=== PATIENT | male | born 1950 | race Caucasian/White ===

== ENCOUNTER 2017-12-06 10:06 | Inpatient (IN) | payer OTHER, MEDICARE ==
[2017-12-06] MEDS ORDERED: ATROPINE SULFATE 1 MG/10 ML SYR IVP ONE (10:15)
--- NOTE | 2017-12-06 10:29 | EDPHY ---
H & P Time Seen by Provider: 12/06/17 10:09 HPI/ROS: CHIEF COMPLAINT: Crushing chest pain HISTORY OF PRESENT ILLNESS: The patient is brought in emergently by paramedics with crushing chest pain which began after he was participating in a spin class today. The patient was noted to be intermittently bradycardic and hypotensive in route. He received aspirin only. The patient has a history of coronary artery disease status post stenting to the right distal coronary artery in September of 2014. He had angiographically normal left coronary system at that point time. The patient reports he has had mild upper respiratory illness. He reports a severe bandlike pain currently. REVIEW OF SYSTEMS: A comprehensive 10 point review of systems is otherwise negative aside from elements mentioned in the history of present illness. Source: Patient - Medical/Surgical History Hx Asthma: No Hx Chronic Respiratory Disease: No Hx Diabetes: No Hx Cardiac Disease: No Hx Renal Disease: Yes Hx Cirrhosis: No Hx Alcoholism: No Hx HIV/AIDS: No Hx Splenectomy or Spleen Trauma: No Other PMH: KIDNEY AND PROSTATE CA - Social History Smoking Status: Never smoked - Physical Exam Exam: General Appearance: Ill-appearing, diaphoretic Eyes: Pupils equal and round no pallor or injection ENT, Mouth: Mucous membranes moist Respiratory: There are no retractions, lungs are clear to auscultation Cardiovascular: Regular rate and rhythm Gastrointestinal: Abdomen is soft and nontender, no masses, bowel sounds normal Neurological: A&O, normal motor function, normal sensory exam, normal cranial nerves Skin: Warm and dry, no rashes Musculoskeletal: Neck is supple nontender Extremities: symmetrical, full range of motion, 2+ radial, dorsalis pedis and posterior tibial pulses noted bilaterally Constitutional: Initial Vital Signs Heart Rate 85 12/06/17 10:10 Respiratory Rate 16 12/06/17 10:10 Blood Pressure 76/50 L 12/06/17 10:10 O2 Sat (%) 87 L 12/06/17 10:10 O2 Delivery Mode Room Air O2 (L/minute) 15 Allergies/Adverse Reactions: No Known Allergies Allergy (Unverified 10/21/14 10:25) Home Medications: Medication Instructions Recorded Cholecalciferol Vit D3 [Vitamin D3 1,000 units PO DAILY 10/21/14 (OTC)] Ibuprofen [Advil] 200 mg PO DAILY PRN 10/21/14 Multivitamins [Tab-A-Finn] 1 each PO DAILY 10/21/14 Medical Decision Making - Diagnostics EKG Interpretation: EKG: Complete interpretation has been separately recorded in the [facility] archive. Summary impression: ST segment depression noted in the inferior leads with mild ST segment elevation in the precordial leads Imaging Results: Imaging Impressions Chest X-Ray 12/06/17 10:13 Impression: 1. Prominence of pulmonary vasculature as well as superior mediastinum. Could potentially just be related to supine position. Consider follow-up upright and lateral views of the chest when the patient is able previous CT of the chest did demonstrate dilated ascending aorta. From single supine image, dissection cannot be excluded at this point. Chest x-ray AP: Images reviewed by myself, wide mediastinum present ED Course/Re-evaluation: The patient arrived to the emergency department hypotensive, tachycardic, diaphoretic. I reviewed the pre-hospital EKG in appreciated ST segment elevation with subtle ST segment elevation noted in the precordial leads. The patient was made a cardiac alert immediately upon arrival. Dr. Yanes from Cardiology emergently presented to the emergency department. The patient did undergo a stat echocardiogram which demonstrates an aortic dissection. I spoke with the cardiothoracic surgery service at 10:20 a.m.. The operating room has been notified of a OR red alert. Cardiothoracic surgery is evaluating the patient in the emergency department at 10:30 a.m. of making arrangements for emergent transfer to the operating room. 10:41 a.m.: Patient is being transferred emergently to the operating room. Critical Care Time: Critical care time exclusive of procedures and exclusive of the PA's time was 35 minutes, performed by myself, Blas Benitez MD. - Data Points Laboratory Results: Laboratory Results 12/06/17 10:13 12/06/17 10:13 12/06/17 12/06/17 12/06/17 10:13 10:13 10:13 WBC RBC Hgb Hct MCV MCH MCHC RDW Plt Count MPV Neut % (Auto) Lymph % (Auto) [place] % (Auto) Eos % (Auto) Baso % (Auto) Nucleat RBC Rel Count Absolute Neuts (auto) Absolute Lymphs (auto) Absolute Monos (auto) Absolute Eos (auto) Absolute Basos (auto) Absolute Nucleated RBC Immature Gran % Immature Gran # PT 16.8 SEC H SEC (12.0-15.0) INR 1.34 H (0.83-1.16) APTT 37.5 SEC SEC (23.0-38.0) Sodium 147 mEq/L H mEq/L (134-144) Potassium 4.3 mEq/L mEq/L (3.5-5.2) Chloride 110 mEq/L mEq/L (97-110) Carbon Dioxide 22 mEq/l mEq/l (22-31) Anion Gap 15 mEq/L mEq/L (8-16) BUN 30 mg/dL H mg/dL (7-23) Creatinine 1.3 mg/dL mg/dL (0.7-1.3) Estimated GFR 55 Glucose 133 mg/dL H mg/dL (70-100) Calcium 10.4 mg/dL mg/dL (8.5-10.4) Troponin I < 0.012 ng/mL ng/mL (0.000-0.034) Patient ABO/Rh O POSITIVE Antibody Screen NEGATIVE Crossmatch IS Only See Detail 12/06/17 10:13 WBC 7.60 10^3/uL 10^3/uL (3.80-9.50) RBC 5.02 10^6/uL 10^6/uL (4.40-6.38) Hgb 15.6 g/dL g/dL (13.7-17.5) Hct 47.1 % % (40.0-51.0) MCV 93.8 fL fL (81.5-99.8) MCH 31.1 pg pg (27.9-34.1) MCHC 33.1 g/dL g/dL (32.4-36.7) RDW 13.8 % % (11.5-15.2) Plt Count 106 10^3/uL L 10^3/uL (150-400) MPV 11.0 fL fL (8.7-11.7) Neut % (Auto) 46.2 % % (39.3-74.2) Lymph % (Auto) 43.6 % % (15.0-45.0) [place] % (Auto) 7.5 % % (4.5-13.0) Eos % (Auto) 1.2 % % (0.6-7.6) Baso % (Auto) 0.7 % % (0.3-1.7) Nucleat RBC Rel Count 0.0 % % (0.0-0.2) Absolute Neuts (auto) 3.52 10^3/uL 10^3/uL (1.70-6.50) Absolute Lymphs (auto) 3.31 10^3/uL H 10^3/uL (1.00-3.00) Absolute Monos (auto) 0.57 10^3/uL 10^3/uL (0.30-0.80) Absolute Eos (auto) 0.09 10^3/uL 10^3/uL (0.03-0.40) Absolute Basos (auto) 0.05 10^3/uL 10^3/uL (0.02-0.10) Absolute Nucleated RBC 0.00 10^3/uL 10^3/uL (0-0.01) Immature Gran % 0.8 % % (0.0-1.1) Immature Gran # 0.06 10^3/uL 10^3/uL (0.00-0.10) PT INR APTT Sodium Potassium Chloride Carbon Dioxide Anion Gap BUN Creatinine Estimated GFR Glucose Calcium Troponin I Patient ABO/Rh Antibody Screen Crossmatch IS Only Medications Given: Discontinued Medications Atropine Sulfate (Atropine 1 Mg/10 Ml Syringe) 1 mg IVP ONCE ONE Stop: 12/06/17 10:16 Last Admin: 12/06/17 10:53 Dose: 1 mg Epinephrine HCl 8 mg/ Dextrose 250 mls @ 0 mls/hr IV ONCALL ONE PRN Reason: As Directed Stop: 12/06/17 10:39 Last Admin: 12/06/17 11:36 Dose: Not Given Tranexamic Acid 1,000 mg/ (Sodium Chloride) 110 mls @ 0 mls/hr IV ONCALL ONE PRN Reason: As Directed Stop: 12/06/17 10:39 Last Admin: 12/06/17 11:44 Dose: Not Given Tranexamic Acid 1,000 mg/ (Sodium Chloride) 110 mls @ 0 mls/hr IV ONCALL ONE PRN Reason: As Directed Stop: 12/06/17 10:39 Last Admin: 12/06/17 11:44 Dose: Not Given Phenylephrine HCl 50 mg/ (Sodium Chloride) 250 mls @ 0 mls/hr IV ONCALL ONE; As Directed PRN Reason: Protocol Stop: 12/06/17 10:39 Last Admin: 12/06/17 11:43 Dose: Not Given Norepinephrine 16 mg/ Sodium (Chloride) 250 mls @ 0 mls/hr IV ONCALL ONE PRN Reason: As Directed Stop: 12/06/17 10:39 Last Admin: 12/06/17 11:42 Dose: Not Given Insulin Human Regular 100 unit (/ Sodium Chloride) 101 mls @ 0 mls/hr IV ONCALL ONE PRN Reason: As Directed Stop: 12/06/17 10:39 Last Admin: 12/06/17 11:42 Dose: Not Given Sodium Bicarbonate 20 meq/Lidocaine HCl 10 ml/Parenteral Electrolytes 1,030 mls @ 0 mls/hr MISC ONCALL ONE PRN Reason: As Directed Stop: 12/06/17 10:39 Last Admin: 12/06/17 11:43 Dose: Not Given Cefazolin Sodium (Cefazolin Syringe) 2 gm in 20 mls @ 200 mls/hr IVP ONCALL ONE PRN Reason: Protocol Stop: 12/06/17 11:05 Last Admin: 12/06/17 10:53 Dose: 20 mls Dopamine HCl/Dextrose (Dopamine 1600 Mcg/Ml (Premix)) 250 mls @ 0 mls/hr IV ONCALL ONE PRN Reason: As Directed Stop: 12/06/17 11:01 Last Admin: 12/06/17 11:35 Dose: Not Given Sodium Chloride (Ns) 1,000 mls @ 0 mls/hr IV ONCE ONE PRN Reason: Wide Open Stop: 12/06/17 11:08 Last Admin: 12/06/17 10:15 Dose: 1,000 mls Sodium Chloride (Ns) 1,000 mls @ 0 mls/hr IV ONCE ONE PRN Reason: Wide Open Stop: 12/06/17 11:08 Last Admin: 12/06/17 10:08 Dose: 1,000 mls Mannitol (Mannitol 25%) 25 gm IVP ONCALL ONE Stop: 12/06/17 10:39 Last Admin: 12/06/17 11:42 Dose: Not Given Mannitol (Mannitol 25%) 25 gm IVP ONCALL ONE Stop: 12/06/17 11:16 Last Admin: 12/06/17 11:42 Dose: Not Given Morphine Sulfate (Morphine) 0.5 mg IVP ONCE ONE Stop: 12/06/17 10:36 Last Admin: 12/06/17 10:53 Dose: 0.5 mg Morphine Sulfate (Morphine) 0.5 mg IVP ONCE ONE Stop: 12/06/17 10:37 Last Admin: 12/06/17 10:53 Dose: 0.5 mg Morphine Sulfate (Morphine) 1 mg IVP ONCE ONE Stop: 12/06/17 10:39 Last Admin: 12/06/17 10:54 Dose: 1 mg Sodium Citrate (Acd-A) 500 ml MISC ONCALL ONE Stop: 12/06/17 11:01 Last Admin: 12/06/17 11:29 Dose: Not Given Departure - Departure Disposition: [facility] Acute Clinical Impression: Aortic dissection Condition: Critical
[2017-12-06 10:30] LABS: PLATELET COUNT 106 10^3/uL (150-400)
[2017-12-06] MEDS ORDERED: PHENYLEPHRINE HCL 50 MG in NS 250 ML IV ONE (10:38)
[2017-12-06] MEDS ORDERED: ceFAZolin 2 GM/SWFI 2 GM/20 ML SYR IVP ONE ×2 (10:38→11:00)
[2017-12-06] MEDS ORDERED: SODIUM BICARBONATE 20 MEQ, LIDOCAINE 1% 10 ML in NORMOSOL-R 1,000 ML MISC ONE (10:38)
[2017-12-06] MEDS ORDERED: TRANEXAMIC ACID 1,000 MG in NS 100 ML IV ONE (10:38)
[2017-12-06] MEDS ORDERED: NOREPINEPHRINE BITARTRATE 16 MG in NS 250 ML IV ONE (10:38)
[2017-12-06] MEDS ORDERED: INSULIN REGULAR HUMAN 100 UNIT in NS 100 ML IV ONE (10:38)
[2017-12-06] MEDS ORDERED: CITRATE DEXTROSE SOLN 500 ML BAG MISC ONE ×2 (10:38→11:00)
[2017-12-06] MEDS ORDERED: MANNITOL 25% 12.5 GM/50 ML VIAL IVP ONE ×2 (10:38→11:15)
[2017-12-06 10:43] LABS: INR 1.34 (0.83-1.16); PROTIME(PATIENT) 16.8 SEC (12.0-15.0)
[2017-12-06] MEDS ORDERED: PROPOFOL 200 MG/20 ML VIAL ONE (10:44)
[2017-12-06] MEDS ORDERED: DOBUTamine 500 MG in D5W 250 ML IV SCH (10:45)
[2017-12-06] MEDS ORDERED: KETAMINE 200 MG/20 ML VIAL ONE (10:46)
--- NOTE | 2017-12-06 10:59 | CPEKG ---
Heart Rate: 52 RR Interval: 1154 P-R Interval: 156 QRSD Interval: 104 QT Interval: 436 QTC Interval: 406 P [place]: 61 QRS [place]: 71 T Wave [place]: -68 EKG Severity - BORDERLINE ECG - EKG Impression: SINUS RHYTHM Electronically Signed By: Blas Benitez 06-Dec-2017 11:31:43
--- NOTE | 2017-12-06 10:59 | PDCARCONS ---
Cardiology Consult Reason for Consult: Chest pains with diaphoresis and history of CAD with PCI Chief Complaint: Crushing chest pains Requesting Physician: ER physician History of Present Illness: Patient is a 67 y/o male with history of CAD s/p PCI to the RCA in the past ( 2013), RUDI, renal carcinoma, and prostate cancer, with echocardiogram from 2013 noting enlargement of the ascending aorta (5.5 cm), who presented to the ER from gym via EMS with chest pains. Chest pains were noted to be 10/10 with localization to the anterior chest. No complaints of radiation into shoulder, neck, or jaw. No reports of "back pains" were noted either. Severe diaphoresis was noted. Patient had been doing some weight lifting this morning. ECG in the field with questionable ST elevation to V1/V2, but clear ST depression noted in inferior and inferolateral leads. More pronounced ST depression was noted with ECG in the ER. Pressures were noted to be hypotensive (90/60 mm Hg) in the ER with heart rates of 45-50 bpm. Given this latter finding, atropine was dosed once. Echocardiography arrived and performed quick views of cardiac structures. Small pericardial effusion was noted. The patient mentioned "leg tingling" to the sap technical developer, who then imaged the abdominal aorta and noted a dissection flap. Repeat assessment of the ascending aorta noted severe enlargement of the ascending aorta (>6 cm) with dissection flap as well as heavy thrombus burden. CT surgery was consulted immediately, and the patient was taken to the OR. Discussion with about critical situation was undertaken. History Information - Allergies/Home Medication List Allergies/Adverse Reactions: No Known Allergies Allergy (Unverified 10/21/14 10:25) Home Medications: Cholecalciferol Vit D3 [Vitamin D3 (OTC)] 1,000 units PO DAILY 10/21/14 [Last Taken Unknown] Ibuprofen [Advil] 200 mg PO DAILY PRN 10/21/14 [Last Taken Unknown] Multivitamins [Tab-A-Finn] 1 each PO DAILY 10/21/14 [Last Taken Unknown] I have personally reviewed and updated: family history, medical history, social history, surgical history Past Medical History: - Past Medical History coronary artery disease, cancer - Surgical History Additional surgical history: surgical scan on right lower abdomen with uncertain etiology - Family History Positive for: hypertension - Social History Smoking Status: Never smoked Alcohol Use: Rarely Drug Use: None Cardiac History - Cardiac History Past Cardiac History: CAD, PCI Cardiac Risk Factors: age > 65, male Timing/Duration: Minutes Severity: severe Severity Scale: 10 Location: substernal Activities at Onset: activity Modifying Factors: improves with: morphine, oxygen Associated Symptoms: chest pain, diaphoresis, malaise Physical Exam Physical Exam: Temp Pulse Resp BP Pulse Ox 95 18 76/49 L 90 L 12/06/17 10:28 12/06/17 10:28 12/06/17 10:28 12/06/17 10:28 Constitutional: uncomfortable, other (severe pain) Eyes: PERRL Ears, Nose, Mouth, Throat: moist mucous membranes, hearing normal Cardiovascular: JVD, pulses symmetric bilaterally (but noted to be diminished in the bilateral lower extremities), tachycardia Peripheral Pulses: 1+: dorsalis-pedis (R), dorsalis-pedis (L) Respiratory: no respiratory distress, no rales or rhonchi Gastrointestinal: normoactive bowel sounds Skin: warm Musculoskeletal: full muscle strength Neurologic: AAOx3, sensation intact bilaterally, CN II-XII Intact Psychiatric: encephalopathic (secondary to hypotension and shock) Lab and Imaging 12/06/17 10:13 12/06/17 10:13 WBC 7.60 10^3/uL (3.80-9.50) 12/06/17 10:13 RBC 5.02 10^6/uL (4.40-6.38) 12/06/17 10:13 Hgb 15.6 g/dL (13.7-17.5) 12/06/17 10:13 Hct 47.1 % (40.0-51.0) 12/06/17 10:13 MCV 93.8 fL (81.5-99.8) 12/06/17 10:13 MCH 31.1 pg (27.9-34.1) 12/06/17 10:13 MCHC 33.1 g/dL (32.4-36.7) 12/06/17 10:13 RDW 13.8 % (11.5-15.2) 12/06/17 10:13 Plt Count 106 10^3/uL (150-400) L 12/06/17 10:13 MPV 11.0 fL (8.7-11.7) 12/06/17 10:13 Neut % (Auto) 46.2 % (39.3-74.2) 12/06/17 10:13 Lymph % (Auto) 43.6 % (15.0-45.0) 12/06/17 10:13 [place] % (Auto) 7.5 % (4.5-13.0) 12/06/17 10:13 Eos % (Auto) 1.2 % (0.6-7.6) 12/06/17 10:13 Baso % (Auto) 0.7 % (0.3-1.7) 12/06/17 10:13 Nucleat RBC Rel Count 0.0 % (0.0-0.2) 12/06/17 10:13 Absolute Neuts (auto) 3.52 10^3/uL (1.70-6.50) 12/06/17 10:13 Absolute Lymphs (auto) 3.31 10^3/uL (1.00-3.00) H 12/06/17 10:13 Absolute Monos (auto) 0.57 10^3/uL (0.30-0.80) 12/06/17 10:13 Absolute Eos (auto) 0.09 10^3/uL (0.03-0.40) 12/06/17 10:13 Absolute Basos (auto) 0.05 10^3/uL (0.02-0.10) 12/06/17 10:13 Absolute Nucleated RBC 0.00 10^3/uL (0-0.01) 12/06/17 10:13 Immature Gran % 0.8 % (0.0-1.1) 12/06/17 10:13 Immature Gran # 0.06 10^3/uL (0.00-0.10) 12/06/17 10:13 PT 16.8 SEC (12.0-15.0) H 12/06/17 10:13 INR 1.34 (0.83-1.16) H 12/06/17 10:13 APTT 37.5 SEC (23.0-38.0) 12/06/17 10:13 Sodium 147 mEq/L (134-144) H 12/06/17 10:13 Potassium 4.3 mEq/L (3.5-5.2) 12/06/17 10:13 Chloride 110 mEq/L (97-110) 12/06/17 10:13 Carbon Dioxide 22 mEq/l (22-31) 12/06/17 10:13 Anion Gap 15 mEq/L (8-16) 12/06/17 10:13 BUN 30 mg/dL (7-23) H 12/06/17 10:13 Creatinine 1.3 mg/dL (0.7-1.3) 12/06/17 10:13 Estimated GFR 55 12/06/17 10:13 Glucose 133 mg/dL (70-100) H 12/06/17 10:13 Calcium 10.4 mg/dL (8.5-10.4) 12/06/17 10:13 Troponin I < 0.012 ng/mL (0.000-0.034) 12/06/17 10:13 Crossmatch IS Only See Detail 12/06/17 10:13 Visualized and Interpreted Chest x-ray results: Yes Chest X-ray Interpretation: other (medistinal widening was severe) Visualized and Interpreted EKG results: Yes EKG Interpretation: Positive for: normal sinsus rhythm, ST depression Telemetry: sinus rhythm/sinus tachycardia Echocardiogram: grossly normal LVEF was appreciated. small pericardial effusion. dissection ( Sincere type A and B, and DeBakey class I). A/P Assessment: 67 y/o male with history of CAD s/p PCI to the RCA, renal cell carcinoma, RUDI, and history of ascending aortic aneurysm (5.5 cm) in 2013, who presented to the ER with chest pains and severe diaphoresis. Echocardiographic findings of dissection were noted (ascending and descending both - Alexander Class A/B and DeBakey Class I). In light of these findings, the patient was taken immediately to the OR by CT surgery. Plan: Immediate CT surgery.
[2017-12-06] MEDS ORDERED: niCARdipine/NACL 200 ML IV SCH ×2 (11:00)
[2017-12-06] MEDS ORDERED: MILRINONE/DEXTROSE 100 ML IV SCH (11:00)
[2017-12-06] MEDS ORDERED: NS 1,000 ML IV ONE ×2 (11:07)
[2017-12-06] MEDS ORDERED: MIDAZOLAM 2 MG/2 ML VIAL ONE (11:15)
[2017-12-06] MEDS ORDERED: VERAPAMIL 5 MG, NITROGLYCERIN 2.5 MG, HEPARIN 500 UNIT, SODIUM BICARBONATE 0.2 MEQ in L... MISC ONE (12:30)
--- NOTE | 2017-12-06 12:57 | PDANEPAE ---
ANE History of Present Illness aortic dissection cardiogenic shock ANE Past Medical History - Cardiovascular History Hx Coronary Artery / Peripheral Vascular Disease: Yes Hx CHF / Valvular Disease: No Hx Palpitations: No - Pulmonary History Hx COPD: No Hx Asthma/Reactive Airway Disease: No Hx Recent Upper Respiratory Infection: No Hx Oxygen in Use at Home: No Hx Sleep Apnea: Yes - Endocrine History Hx Diabetes: No Hypothyroid: No Hyperthyroid: No Obesity: no - Renal History Hx Renal Disorders: No - Liver History Hx Hepatic Disorders: No - Chronic Pain History Chronic Pain: No ANE Review of Systems Review of systems is: negative Review of Systems: - Exercise capacity Exercise capacity: >=4 METS ANE Patient History - Allergies Allergies/Adverse Reactions: No Known Allergies Allergy (Unverified 10/21/14 10:25) - Home Medications Home medications: home medication list seen and reviewed Home Medications: Cholecalciferol Vit D3 [Vitamin D3 (OTC)] 1,000 units PO DAILY 10/21/14 [Last Taken Unknown] Ibuprofen [Advil] 200 mg PO DAILY PRN 10/21/14 [Last Taken Unknown] Multivitamins [Tab-A-Finn] 1 each PO DAILY 10/21/14 [Last Taken Unknown] - NPO status NPO Status: no food or drink >8 hours - Anes Hx Anes Hx: no prior problems - Smoking Hx Smoking Status: Never smoked - Alcohol Use Alcohol Use: Rarely ANE Labs/Vital Signs - Labs Result Diagrams: 12/06/17 10:13 12/06/17 10:13 - Vital Signs Vital Signs: reviewed preoperatively; see RN documention for details Blood Pressure: 92/76 Heart Rate: 104 Respiratory Rate: 16 O2 Sat (%): 93 Height: 177.8 cm Weight: 72.575 kg ANE Physical Exam - Airway Neck exam: FROM Mallampati Score: Unable to assesss Mouth exam: normal dental/mouth exam - Cardiovascular Cardiovascular: regular rate and rhythym - ASA Status ASA Status: V, E ANE Anesthesia Plan Anesthesia Plan: general endotracheal anesthesia Lines/Monitors: arterial line, ARUN Urgent/Emergent Case: Robert cox completed preop but documented later for safe timely pt care
--- NOTE | 2017-12-06 13:30 | ECHO ---
[email or web address] [address] [address] Main: [phone] Fax: Transthoracic Echocardiogram Name: CORONA TEIXEIRA MR#: [id number] Study Date: 12/06/2017 Study Time: 10:14 AM Date of : 1950 Age: 67 year(s) Height: ( ) Weight: ( ) BSA: Gender: Male Examination: Limited Echo Indication: STAT echo in ER; PT with chest pain Image Quality: Adequate Contrast: Requested by: Blas Benitez BP: / Heart Rate: Rhythm: Indication: STAT echo in ER; PT with chest pain Procedure Staff Glove Wrapper: Sravanthi Butcher Physician: Bienvenido Yanes Requesting Provider: Conclusions: Normal size left ventricle. Global hypercontractility of the left ventricle. Mildly dilated right ventricle. Mildly reduced RV function. Abdominal, SSN and ascending aortic dissection noted.. Markedly dilated aortic root. Small pericardial effusion. Measurements: Chambers Valvular Assessment AV/MV Valvular Assessment TV/PV Normal Normal Normal Name Value Range Name Value Range Name Value Range Continued Measurements: Findings: Left Ventricle: Normal size left ventricle. Global hypercontractility of the left ventricle. No regional wall motion abnormality. Right Ventricle: Mildly dilated right ventricle. Mildly reduced RV function. Aortic Valve: Mild to moderate aortic valve regurgitation. Aorta: Abdominal, SSN and ascending aortic dissection noted.. Markedly dilated aortic root. Pericardium: Small pericardial effusion. Patient: CORONA TEIXEIRA Study Date: 12/06/2017 Page 1 of 2 10:14 AM (No Signature Object) Patient: CORONA TEIXEIRA Study Date: 12/06/2017 Page 2 of 2 10:14 AM [id number]
[2017-12-06] MEDS ORDERED: NITROGLYCERIN 50 MG/10 ML SDV IV ONE (14:06)
[2017-12-06] MEDS ORDERED: fentaNYL 250 MCG/5 ML INJ ONE (14:17)
[2017-12-06] MEDS ORDERED: MINERAL OIL 10 ML VIAL ONE (14:38)
[2017-12-06] MEDS ORDERED: PROTAMINE SULFATE 50 MG/5 ML VIAL IVP ONE ×2 (15:24→15:38)
[2017-12-06] MEDS ORDERED: DEXMEDETOMIDINE/NS 4MCG/ML 50 ML BTL IV ONE (16:40)
[2017-12-06] MEDS ORDERED: DEXMEDETOMIDINE HCL 400 MCG in NS 100 ML IV SCH ×2 (17:00→18:30)
[2017-12-06] MEDS ORDERED: ACETAMINOPHEN 325 MG TAB PO PRN (17:17)
[2017-12-06] MEDS ORDERED: MAGNESIUM SULF 2 GM/WATER 50 ML IV ONE (17:17)
[2017-12-06] MEDS ORDERED: POLYETHYLENE GLYCOL 3350 17 GM PKT PO PRN (17:17)
[2017-12-06] MEDS ORDERED: MEPERIDINE 25 MG/ML SYR IVP PRN (17:17)
[2017-12-06] MEDS ORDERED: POTASSIUM Cl (KCl) 50 ML IV PRN (17:17)
[2017-12-06] MEDS ORDERED: SODIUM CL NASAL 45 ML BTL EACHNARE PRN (17:17)
[2017-12-06] MEDS ORDERED: MAGNESIUM HYDROXIDE 30 ML UDCUP PO PRN (17:17)
[2017-12-06] MEDS ORDERED: METOCLOPRAMIDE 10 MG/2 ML VIAL IVP PRN (17:17)
[2017-12-06] MEDS ORDERED: ONDANSETRON 4 MG/2 ML VIAL IVP PRN (17:17)
[2017-12-06] MEDS ORDERED: D50W 25 GM/50 ML SYR IVP PRN (17:17)
[2017-12-06] MEDS ORDERED: CEPACOL LOZENGE PO PRN (17:17)
[2017-12-06] MEDS ORDERED: ONDANSETRON DISINTEGRATING 4 MG TAB PO PRN (17:17)
[2017-12-06] MEDS ORDERED: LACTULOSE 20 GM/30 ML UDCUP PO PRN (17:17)
[2017-12-06] MEDS ORDERED: BISACODYL 10 MG SUPP PR PRN (17:17)
[2017-12-06] MEDS ORDERED: NS 1,000 ML IV SCH (17:30)
[2017-12-06] MEDS ORDERED: INSULIN REGULAR HUMAN 100 UNIT in NS 100 ML IV SCH (17:30)
[2017-12-06 18:31] LABS: INR 1.93 (0.83-1.16); PROTIME(PATIENT) 22.1 SEC (12.0-15.0)
--- NOTE | 2017-12-06 18:39 | CPEKG ---
Heart Rate: 129 RR Interval: 465 P-R Interval: 116 QRSD Interval: 100 QT Interval: 344 QTC Interval: 504 P [place]: 53 QRS [place]: -24 T Wave [place]: 117 EKG Severity - ABNORMAL ECG - EKG Impression: SINUS TACHYCARDIA EKG Impression: LEFT AXIS DEVIATION EKG Impression: CONSIDER ANTEROSEPTAL INFARCT EKG Impression: NONSPECIFIC ST DEPRESSION INFERIOR AND LATERAL LEADS. Electronically Signed By: Ezio Hurtado 07-Dec-2017 06:41:26
[2017-12-06] MEDS ORDERED: fentanYL/NACL/100 ML BAG IV ONE (19:01)
[2017-12-06] MEDS ORDERED: FUROSEMIDE 40 MG/4 ML VIAL ONE (19:01)
[2017-12-06] MEDS ORDERED: PROPOFOL/EMULSION 1,000 MG/100 ML BOTTLE IV ONE (19:02)
--- NOTE | 2017-12-06 19:12 | GOP ---
[f rep st] OPERATIVE REPORT DATE OF OPERATION: 12/06/2017 SURGEON: Kenneth Hendrickson DO CORPORATE SALES REPRESENTATIVE: Chandni Cutler PA-C. ANESTHESIOLOGIST: Rocco Arita MD. PREOPERATIVE DIAGNOSIS: 1. Acute aortic dissection, type A with cardiac tamponade and severe aortic insufficiency. 2. Arteriosclerotic heart disease, by history, status post stent to the right coronary artery, post infarction. 3. Status post right nephrectomy for renal cell carcinoma. POSTOPERATIVE DIAGNOSIS: 1. Acute aortic dissection, type A with cardiac tamponade and severe aortic insufficiency. 2. Arteriosclerotic heart disease, by history, status post stent to the right coronary artery, post infarction. 3. Status post right nephrectomy for renal cell carcinoma. 4. Evidence of acute pulmonary edema and respiratory compromise. 5. Two large ascending aortic aneurysms with chronic root dilatation, and evidence of chronic aortic insufficiency. PROCEDURE PERFORMED: 1. Emergent sternotomy with replacement of his aortic root with a #27 freestyle bioprosthesis. 2. Replacement of ascending aorta under low flow circulation arrest. 3. Right axillary artery grafting with a 10 mm Hemashield graft, end-to-side for cannulation and per fusion purposes. FINDINGS: Patient presented with acute aortic dissection, diagnosed by echo in the ER, no CAT scan w as performed at that time. He was hemodynamically unstable, brought emergently to the operating room where he was intubated. A right radial A-line was placed in order to monitor perfusion via right ax illary artery cannulation during bypass. DESCRIPTION OF PROCEDURE: He was prepped and draped emergently. A sternotomy was performed. There was evidence of venous hypertension consistent with tamponade physiology. He was hemodynamically uns table. Upon opening the sternum, pericardium was dark and consistent with blood within the pericardi um. A 3 cm rent was performed down by the diaphragm with evacuation of blood and clot under pressure . The pericardium was opened. There was evidence of a slow continuous bleed at the ventricular-aort ic juncture at about the right coronary artery. The patient remained stable while axillary cannulati on was performed, after exposing the right axillary artery and grafting with a 10 mm Hemashield graft end-to-side after heparin was given. We then placed the cannula within that graft for perfusion of the brain while the arch was reconstructed. I then placed a right atrial cannula. The aorta measured what appeared to be 7 cm to 8 cm, but was quite edematous and obviously, markedly abnormal following dissection and contained rupture. Bypass was begun. The LV vent was placed for s evere aortic insufficiency. The heart was decompressed. At approximately 32 degrees centigrade, the patient spontaneously fibrillated. We allowed him to continue cooling to 22 degrees centigrade. Du ring that period, an aortic cross-clamp was placed lower down toward the aortic valve to avoid displa cing clot. The aortotomy was performed and a standard dissection appearing to start at the right lat eral wall was evident. The aorta was excised in that area. We then evaluated the valve, which was a large valve, dilated with fenestrations, and likely evidence of chronic aortic insufficiency. The l eaflets did not coapt, likely due to mostly dilatation. It was a trileaflet valve. The sinuses were enormous and dissected to both around the left and right coronary ostia. For that reason, I felt th at resuspension of the valve would be unsuccessful and for that reason, a root replacement was planne d. The coronary ostia were excised including the adventitia for a large portion around it. Again, it olson d been partially dissected away from its adventitia. Both buttons were developed, with the plans of re-implanting. The patient had a previous stent to the distal right coronary artery, and no recent h eart catheterization had been performed. The plan was if he had problems coming off bypass, we would graft the distal right system. After developing the buttons, we then excised the dissected infarcte d tissue around the aorta, and left a rim of anulus and sinus to sew a new conduit to. He was sized to a 27-[place] freestyle, which was rotated 120 degrees, and implanted with interrupted 2-[address] edgeted mattress sutures, reinforced with BioGlue. We then placed an opening in the patient's new left sinus, which was the pig's noncoronary sinus, sin ce it had been rotated, and reimplanted that left main coronary artery without difficulty with a 5-0 Prolene. This was reinforced in several sites, as well as BioGlue externally. We then performed a s imilar feature on the right coronary artery ostium, which was anastomosed to the pig's left, which olson d now been again rotated 120 degrees. It was a direct line-up with no tension, and appeared to lie p erfectly with the heart filled, and no traction on any structures. That button was excised. The rig ht coronary artery was reimplanted with a continuous running 4-0 Prolene suture, grabbing as much adv entitia and dissected tissue as possible to bolster the reimplantation. BioGlue was applied external ly. The patient had been cooled for a while to 22 degrees centigrade, and had been packed in ice. I then isolated the innominate artery which was cross clamped, and he was perfused at approximately 10 cc/k g, staying under 50 mm pressure on the right radial A-line. The aorta was excised up to the base of the innominate artery, beyond the origin of the dissection. [place] was placed inside the anastomosis, and a 26 Hemashield graft cut at the bevel, was anastomosed end-to-end into that, reinforcing the ext ernal portion with felt on the inside. Several horizontal mattress sutures were placed in each quadr ant in order to just reinforce stabilization of that anastomosis. It was checked under pressure and there was no leaking. It was then dried and BioGlue was applied externally. During that period, rewarming was begun. We then did a reanastomosis of a 26 Hemashield graft to the 27 freestyle root, measuring it to lie without tension. This was done with a continuous running 3-0 Prolene suture. We then removed the cross-clamp with suction on the LV vent and the ascending aorti c vent. The patient then spontaneously developed normal sinus rhythm. During the rewarming phase, h e had good contractility. The LV sump was removed. No air was identified in Trendelenburg. He was then weaned from bypass. He was somewhat coagulopathic, which became more evident over time. The protamine was administered, as it was blood products and over time, clot was noted to form. Any sites of bleeding or oozing were controlled with suture or Bovie. When no further bleeding was identified, the cannulas were removed and oversewn. Two ventricular pacing wires were placed. The thymic fat and pericardium were closed . We did open the right side of the pericardium for approximately 6 cm, 2 cm anterior to the phrenic nerve in order to prevent tamponade and let any bleeding drain into the right chest. We had never e ntered the left chest. Two right pleural and 1 anterior mediastinal drain were placed. The thymic f at and pericardium were closed. Chest was closed in a standard fashion. Patient was returned to ICU after being monitored for bleeding in the OR, in stable condition. /[id number]/MODL
--- NOTE | 2017-12-06 19:13 | POSTANESTH ---
Post Anesthetic Evaluation Cardiovascular Status: Tx Over/Under Hydration Respiratory Status: Requires Airway Assist Level of Consciousness/Mental Status: Mildly Sleepy, Arousable Pain Control: Adequate, Prn Tx Ordered Nausea/Vomiting Control: Adequate, Prn Tx Ordered Complications Possibly Related to Anesthesia: None Noted Notes: critical but stable condition. follows basic commands
[2017-12-06 19:25] LABS: PLATELET COUNT 95 10^3/uL (150-400)
--- NOTE | 2017-12-06 19:34 | ASMTCMCOM ---
CM Note CM Note Notes: Patient presented to the ED via EMS after collapsing [place]. Patient had emergent OHS for acute aortic aneurysm. Patient's is Renetta (c: [phone], h:[phone]) and she was provided information , updates and emotional support while waiting for patient in OR. Renetta and Conrad have two adult children, Vandana lives in [place] and Thuan lives in [place]. Renetta was able to connect with both children. This CM stayed with Renetta until about 12:15p when a family friend Enrique ([phone]) arrived. Patient is usually active and otherwise healthy (does has a history of one cardiac stent, nephrectomy due to cancer and prostate cancer). Renetta provided CM number for any further needs. Exact DC needs unknown. CM to follow. Date Signed: 12/06/2017 07:33 PM Electronically Signed By:Zahra Banegas RN
[2017-12-06] MEDS ORDERED: FUROSEMIDE 40 MG/4 ML VIAL IVP ONE (19:45)
[2017-12-06] MEDS: DEXMEDETOMIDINE IN 0.9 % NACL 100 ML IV SCH ×2 (20:31→21:40)
[2017-12-06] MEDS: fentaNYL/NACL 100 ML IV SCH (20:33)
[2017-12-06 20:36] LABS: INR 1.54 (0.83-1.16); PROTIME(PATIENT) 18.6 SEC (12.0-15.0)
[2017-12-06] MEDS: PANTOPRAZOLE SODIUM 40 MG VIAL IVP SCH (20:53)
[2017-12-06] MEDS: CHLORHEXIDINE GLUCONATE 15 ML UDL PO SCH (21:41)
[2017-12-06] MEDS: FAMOTIDINE 20 MG/NACL 50 ML IV SCH (21:41)
[2017-12-06] MEDS: MUPIROCIN 2% 22 GM OINT NS SCH (21:42)
[2017-12-06] MEDS: ceFAZolin 2 GM/DEXTROSE 100 ML IV SCH (22:57)
[2017-12-06] MEDS: ACETAMINOPHEN 650 MG SUPP PR PRN (23:16)
[2017-12-07] MEDS: ALBUMIN 5% 250 ML IV PRN ×6 (00:17→09:31)
[2017-12-07] MEDS: DEXMEDETOMIDINE IN 0.9 % NACL 100 ML IV SCH ×2 (01:05→03:36)
[2017-12-07 04:00] LABS: PLATELET COUNT 69 10^3/uL (150-400)
[2017-12-07] MEDS: HEPARIN 5,000 UNIT/0.5 ML SYR SC SCH (04:04)
[2017-12-07] MEDS: ACETAMINOPHEN 650 MG SUPP PR PRN (05:16)
[2017-12-07] MEDS: ceFAZolin 2 GM/DEXTROSE 100 ML IV SCH ×3 (05:16→22:33)
--- NOTE | 2017-12-07 06:15 | SOAPPROG ---
SOAP Progress Note Assessment/Plan: POD #1: Emergent aortic root replacement with #27 freestyle bioprosthesis, replacement of ascending aorta under low flow circulation arrest, right axillary cannulation with a 10 mm Hemashield graft Aortic aneurysm with acute type A aortic dissection and severe aortic insufficiency s/p aortic root and ascending aorta replacement - Wean drips as tolerated - CTs to remain to suction, AL to remain until off pressors, pacing wires to be capped d/t stable rhythm Acute respiratory failure secondary to pulmonary edema - Continue vent weaning as tolerated Acute blood loss anemia with coagulopathy and thrombocytopenia s/p massive blood transfusion - Chest tubes now with minimal output, continue to monitor - Thrombocytopenia secondary to CPB s/p right nephrectomy for renal cell carcinoma - Normal Cr with good UOP - Avoid nephrotoxins/hypotension h/o ACS/CAD s/p RCA stent - Continue ASA, BB, statin when appropriate Subjective: Follows commands on ventilator. Objective: Vital Signs Temp Pulse Resp BP Pulse Ox 39.0 C H 97 16 95/68 L 94 12/07/17 05:59 12/07/17 05:59 12/07/17 05:59 12/07/17 05:59 12/07/17 05:59 Laboratory Results 12/07/17 03:45 12/07/17 03:45 12/06/17 12/07/17 12/08/17 05:59 05:59 05:59 Intake Total 5158.6 Output Total 4965 Balance 193.6 PT 18.6 SEC (12.0-15.0) H 12/06/17 20:05 INR 1.54 (0.83-1.16) H 12/06/17 20:05 Physical Exam - Physical Exam General Appearance: alert, no apparent distress EENT: ET tube, No scleral icterus (R), No scleral icterus (L) Neck: normal inspection Respiratory: No respiratory distress Cardiac/Chest: regular rate, rhythm Abdomen: non-tender, soft, No distended Skin: normal color, warm/dry Extremities: No pedal edema Neuro/Psych: other (follows commands) ICD10 Worksheet Patient Problems: Problems Problem Status Onset Acute blood loss anemia Acute Aortic dissection Acute Aortic valve insufficiency Acute Coagulopathy Acute Ruptured aortic aneurysm Acute S/P aortic valve replacement with stentless valve Acute ~12/06/17 S/P ascending aortic replacement Acute ~12/06/17 History of nephrectomy Chronic Hx of prostatectomy Chronic RUDI (obstructive sleep apnea) Chronic Presence of stent in right coronary artery Chronic Chest heaviness Acute
[2017-12-07] MEDS ORDERED: FUROSEMIDE 40 MG/4 ML VIAL IVP ONE (08:09)
[2017-12-07] MEDS: CHLORHEXIDINE GLUCONATE 15 ML UDL PO SCH ×2 (08:49→21:37)
[2017-12-07] MEDS: fentaNYL/NACL 100 ML IV SCH ×2 (08:49→22:33)
[2017-12-07] MEDS: PANTOPRAZOLE SODIUM 40 MG VIAL IVP SCH (08:49)
[2017-12-07] MEDS ORDERED: ALBUMIN 5% 250 ML IV PRN (08:50)
[2017-12-07] MEDS: FAMOTIDINE 20 MG/NACL 50 ML IV SCH ×2 (08:50→21:37)
[2017-12-07] MEDS ORDERED: ASPIRIN 81 MG CHEWABLE TAB TUBE PRN (09:00)
--- NOTE | 2017-12-07 09:29 | GCON ---
[f rep st] CONSULTATION PULMONARY CRITICAL CARE CONSULTATION DATE OF CONSULTATION: 12/07/2017 REASON FOR CONSULTATION: Ventilatory management status post emergent surgery for aortic dissection. Acute respiratory failure with pulmonary edema. HISTORY: The patient is a 67-year-old gentleman, with a history of coronary artery disease and previ ously known dilated aorta. He is very active. He was in a spin class yesterday morning when he deve loped chest pain. He came to the emergency department and was being evaluated for an acute coronary event. He was borderline hypotensive and bradycardic. He developed some lower extremity neurologic symptoms. Cardiac echo was being performed. A flap was noted in the ascending aorta. Dissection wa s then documented. Cardiothoracic surgery was emergently called and the patient was taken directly t o the operating room. A type A dissection was found with cardiac tamponade and severe aortic insuffi ciency. Replacement of the aortic root with an aortic valve and replacement of the ascending aorta w as performed. Right axillary artery grafting was also required. The patient had acute pulmonary edema when surgery was initiated. This improved. Postoperatively he was on 100% FiO2 but overnight, following surgery, his oxygen requirements have decreased and blood gas looks significantly better. He is currently on 40% FiO2, arousable, on dopamine and fentanyl wit h stable vital signs. He did receive 6 units of blood with 2 more issued, 7 units of fresh frozen plasma, 3 units of platel ets and 2 of cryoprecipitate. PAST MEDICAL HISTORY: Remarkable for renal cell carcinoma as well as prostate cancer, coronary arter y disease, and known enlargement of the ascending aorta in 2013. HOME MEDICATIONS: Aspirin, vitamin D, p.r.n. ibuprofen and vitamins and supplements. PAST SURGICAL HISTORY: Nephrectomy, prostatectomy, cardiac stenting. SOCIAL HISTORY: He is . He is a never smoker. Significant alcohol is negative. He exercise s on a regular basis, is a cyclist, lifts weights, etc. 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 FAMILY HISTORY: Negative/noncontributory. REVIEW OF SYSTEMS: Unobtainable. PHYSICAL EXAMINATION: GENERAL: A fit appearing gentleman who is intubated, sedated, but arousable o n the ventilator. VITAL SIGNS: Blood pressure is 96/69 with a mean arterial pressure of 78. Heart rate is 94 with sinus rhythm on the monitor. CVP is 10. He is febrile to approximately 39. Respira tory rate is 16. HEENT: Remarkable for endotracheal tube being in placed orally. An orogastric tub e is also in place. Pupils are equal. There is no significant jugular venous distention. CHEST: C lear bilaterally anteriorly. Breath sounds are diminished at the bases. There are a few rales poste riorly. Surgical incisions are present including his median sternotomy and an incision over the righ t subclavicular area. Chest/mediastinal tubes x3 are in place. HEART: Regular in rate and rhythm. Aortic valve sounds fine. Systolic murmur is present. ABDOMEN: Fairly soft. No bowel sounds are appreciated. A Menezes catheter is in place. Urine output is excellent. EXTREMITIES: Unremarkable f or edema, cords, or tenderness. Pulses are intact. SKIN: Without significant lesions or rash. LENARD ROLOGIC: Examination cannot be fully assessed currently; however, he moves all extremities appropria tely. and responds to simple questions and commands. DATABASE: Chest x-ray this morning shows marked improvement in diffuse bilateral pulmonary edema see n preoperatively. Lines and tubes are in good position. Laboratory: Arterial blood gas shows a pH of 7.44, pCO2 of 33, and pO2 of 68 on 40% FiO2, tidal volu me of 650, and a respiratory rate of 16. White blood cell count is 8000, hematocrit 31.2, [place] [id number]. Postoperatively the INR was 1.54, PTT 40, fibrinogen low at 142. Sodium is 148, potassiu m 4.9, CO2 22, BUN 29 with a creatinine of 1.2. Glucoses are in the 115 range, calcium 8.3. ASSESSMENT: 1. Status post aortic dissection and repair. 2. Acute respiratory failure secondary to pulmonary edema. This has improved significantly. He is now on 40% FiO2 and CPAP trials can likely be initiated today. 3. Acute blood-loss anemia. He has received 6 units of blood and likely will require more as he equ ilibrates. 4. Cardiovascular status. He is stable, on dopamine. Some right ventricular dysfunction was noted perioperatively. 5. Metabolic: No issues currently identified. 6. Deep vein thrombosis prophylaxis: Sequential compression devices. 7. Gastrointestinal prophylaxis: On famotidine. 8. Fever: Secondary to surgical issues, bleeding, etc. On cephazolin for surgical protocols. 9. History of renal cell carcinoma, status post nephrectomy and prostate cancer. PLAN AND RECOMMENDATIONS: Continued ventilatory support and supportive care will be maintained. Dop amine will be continued. Appropriate pain control and sedation will be maintained. CPAP trials will be initiated later today. Laboratory, chest x-ray and blood gas will be followed. Surgical issues per cardiovascular surgery. Further plans and recommendations will be made based on his progress over the next 12-24 hours. /[id number]/MODL
[2017-12-07] MEDS ORDERED: ALBUMIN 5% 250 ML IV ONE (10:00)
[2017-12-07] MEDS ORDERED: NOREPINEPHRINE BITARTRATE 16 MG in NS 250 ML IV SCH (10:30)
[2017-12-07] MEDS: ASPIRIN 81 MG CHEWABLE TAB PO SCH (10:41)
[2017-12-07] MEDS: MUPIROCIN 2% 22 GM OINT NS SCH ×2 (10:42→21:37)
[2017-12-08 04:38] LABS: PLATELET COUNT 58 10^3/uL (150-400)
[2017-12-08] MEDS: ceFAZolin 2 GM/DEXTROSE 100 ML IV SCH (05:43)
--- NOTE | 2017-12-08 06:26 | SOAPPROG ---
SOAP Progress Note Assessment/Plan: Assessment: POD#2 Emergent replacement of aortic valve and ascending aorta with #27 mm Freestyle porcine root and #26 Hemashield interposition graft. Low flow hypothermic circulatory arrest, right axillary artery cannulation. Acute type A aortic dissection extending into the abdominal aorta - With severe AI, acute pulm edema, hemopericardium and early tamponade physiology. Intraop evidence of intimal tear in the mid asc aorta and external leak proximally near the RCA. Valve, ao root and asc ao replaced. Residual dissection beyond the distal arch to be evaluated by CT scan later into recovery. Acute respiratory failure secondary to pulmonary edema - Significant ventilatory support early postop gradually better. Decreasing oxygen requirements with resolution of edema. CPAP trials in progress. Extubation later this morning anticipated. Acute blood loss anemia with coagulopathy and thrombocytopenia - Exacerbated by friable tissue, DHCA, and CPB. Stable s/p massive blood transfusion. Single kidney - s/p right nephrectomy for renal cell carcinoma. Preop Cr 1.3. Minimal postop renal insufficiency with careful fluid management, MAPs > 70, and avoidance nephrotoxins. Stable CAD - s/p RCA stent. Off CPB without RWMA. Secondary prevention with ASA , BB, and statin when appropriate. Plan: Vent wean/extubation per pulm. Wean milrinone and levo once extubated. Keep thalia and gould until extubated. Consider PICC for vascular access. Wrap and cap Vwires. Convert blakes to bulb if no air leak once OOB. Strict NPO until orals cleared by BUDGET CONSULTANT. 12/08/17 06:25 Subjective: Lightly sedated on vent. Opens eyes. Nods head. Follows simple commands. MAEE. Denies pain. Objective: Vital Signs Temp Pulse Resp BP Pulse Ox 37.5 C 98 16 99/65 L 92 12/08/17 04:00 12/08/17 06:00 12/08/17 06:00 12/08/17 06:00 12/08/17 06:00 Laboratory Results 12/08/17 04:20 12/08/17 04:20 12/07/17 12/08/17 12/09/17 05:59 05:59 05:59 Intake Total 5158.6 1399 Output Total 4965 4055 Balance 193.6 -2656 PT 18.6 SEC (12.0-15.0) H 12/06/17 20:05 INR 1.54 (0.83-1.16) H 12/06/17 20:05 Dopa @ 3 mcg, Levo @ 2 mcg for MAPs > 70. No backup pacing or tachyarrhythmias. CTOP steadily decr. CXR-> improved aeration, decr pulm edema. Excellent UOP. Renal fx stable Physical Exam - Physical Exam General Appearance: alert, no apparent distress Respiratory: lungs clear (grossly) Cardiac/Chest: regular rate, rhythm, friction rub, other (Sternotomy CDI. Vwires intact) Peripheral Pulses: 3+: dorsalis-pedis (R), dorsalis-pedis (L) Abdomen: non-tender, soft Skin: warm/dry Extremities: swelling (1+) ICD10 Worksheet Patient Problems: Problems Problem Status Onset Acute blood loss anemia Acute Aortic dissection Acute Aortic valve insufficiency Acute Coagulopathy Acute Ruptured aortic aneurysm Acute S/P aortic valve replacement with stentless valve Acute ~12/06/17 S/P ascending aortic replacement Acute ~12/06/17 History of nephrectomy Chronic Hx of prostatectomy Chronic RUDI (obstructive sleep apnea) Chronic Presence of stent in right coronary artery Chronic Chest heaviness Acute
[2017-12-08] MEDS: CHLORHEXIDINE GLUCONATE 15 ML UDL PO SCH ×2 (09:13→21:11)
[2017-12-08] MEDS ORDERED: FUROSEMIDE 40 MG/4 ML VIAL IVP ONE ×2 (10:35→19:45)
[2017-12-08] MEDS: PANTOPRAZOLE SODIUM 40 MG VIAL IVP SCH (10:44)
[2017-12-08] MEDS: fentaNYL/NACL 100 ML IV SCH (10:44)
[2017-12-08] MEDS: MUPIROCIN 2% 22 GM OINT NS SCH (10:45)
[2017-12-08] MEDS: LEVALBUTEROL 1.25 MG/3 ML DEYVIAL IH SCH ×3 (11:05→22:47)
[2017-12-08] MEDS: ASPIRIN 81 MG CHEWABLE TAB PO SCH (12:02)
[2017-12-08] MEDS: FAMOTIDINE 20 MG/NACL 50 ML IV SCH (12:03)
--- NOTE | 2017-12-08 12:51 | ASMTCMCOM ---
CM Note CM Note Notes: Plan for patient is to wean from the vent, keep thalia and gould until he is extubated, consider a PICC for vascular access, and strict NPO until WEB APPLICATIONS PROGRAMMER clears patient. Patient has not been able to participate in therapy evals as of yet. D/C needs TBD. CM will follow. Date Signed: 12/08/2017 12:50 PM Electronically Signed By:Lida Piper LCSW
[2017-12-08] MEDS ORDERED: fentaNYL 50 MCG PATCH TD SCH (14:45)
--- NOTE | 2017-12-08 14:48 | PDINTPN ---
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 Hemodynamics stable. Remains on low-dose dopamine and norepinephrine. Acute pulmonary edema, resolving. Secondary to #1. Acute respiratory failure/ventilatory insufficiency. Secondary to #2 and prolonged aortic surgery. Improved now/resolving. Tolerated CPAP this morning well and subsequently extubated. Stable currently on 6 L. Acute blood-loss anemia. Hematocrit 26, stable. Has received a total of 8 U of packed red blood cells as well as blood products. Metabolic: No issues identified. Off insulin drip. DVT prophylaxis: SCDs. Heparin not indicated currently secondary to large thoracic surgery and bleeding. History of nephrectomy: BUN 35, creatinine 1.2. Making good urine. Plan: Continue care in the intensive care unit. Oxygen as needed. Continue bronchodilator therapies. Gentle Lasix diuresis. Follow laboratory, H and H, chest x-ray. Decreased sedatives and pain control as much as possible. Increase activity/mobilize. Surgical issues and drips per CVS. Encourage IS, coughing and deep breathing. 40 min of critical care time spent directly with the patient. Discussed with the patient's , CVS, nursing, and respiratory therapy. Subjective: Did well with CPAP this a.m.. Extubated. Doing well since. Some chest pain as would be expected. Remains on oxygen. Occasionally will cough up some bloody sputum. Objective: Vital Signs Temp Pulse Resp BP Pulse Ox 37.6 C 84 18 112/68 97 12/08/17 13:00 12/08/17 14:00 12/08/17 14:00 12/08/17 14:00 12/08/17 14:00 Microbiology 12/08/17 08:40 - Final Sputum, Induced/Suctioned Laboratory Results 12/08/17 04:20 12/08/17 12:10 12/07/17 12/08/17 12/09/17 05:59 05:59 05:59 Intake Total 5158.6 1399 Output Total 4965 4055 1880 Balance 193.6 -2656 -1880 PT 18.6 SEC (12.0-15.0) H 12/06/17 20:05 INR 1.54 (0.83-1.16) H 12/06/17 20:05 Laboratory Tests 12/08/17 12/08/17 04:20 05:30 pCO2 46 H pO2 74 ABG pH 7.40 ABG HCO3 27 H O2 Concentration % 45 CPAP YES Sodium 147 H Potassium 4.1 Chloride 110 Carbon Dioxide 29 D Anion Gap 8 BUN 35 H Creatinine 1.2 Glucose 105 H Calcium 8.5 CXR this morning: Significantly improved bilateral infiltrates consistent with resolving pulmonary edema. Lines and tubes in good position Physical Exam - Physical Exam General Appearance: other (Somnolent, arousable, responsive) EENT: PERRL/EOMI, other (Endotracheal tube removed earlier. Now on oxygen at 6 L with saturations in the mid high 90s.) Neck: normal inspection (No obvious JVD) Respiratory: lungs clear, decreased breath sounds (At the bases), rales (Few rales at bases, but air movement decreased), No rhonchi (At this time), No wheezing Cardiac/Chest: regular rate, rhythm (Valve sounds fine), other (Incisions fine, chest tubes in place) Male Genitalia: other (Menezes catheter in place, good urine output.) Skin: warm/dry, pallor Extremities: pedal edema, swelling Neuro/Psych: no motor/sensory deficits, No cognition abnormalities ICD10 Worksheet Patient Problems: Problems Problem Status Onset RUDI (obstructive sleep apnea) Chronic Acute blood loss anemia Acute Coagulopathy Acute Presence of stent in right coronary artery Chronic Hx of prostatectomy Chronic History of nephrectomy Chronic S/P ascending aortic replacement Acute ~12/06/17 S/P aortic valve replacement with stentless valve Acute ~12/06/17 Aortic valve insufficiency Acute Ruptured aortic aneurysm Acute Chest heaviness Acute Aortic dissection Acute
[2017-12-08] MEDS: fentaNYL 100 MCG/2 ML INJ IVP PRN (17:53)
[2017-12-08] MEDS ORDERED: DOPamine/DEXTROSE/250 ML BAG IV ONE (20:06)
[2017-12-09] MEDS: fentaNYL 100 MCG/2 ML INJ IVP PRN (04:58)
[2017-12-09 05:21] LABS: PLATELET COUNT 58 10^3/uL (150-400)
[2017-12-09] MEDS: LEVALBUTEROL 1.25 MG/3 ML DEYVIAL IH SCH ×3 (05:32→17:32)
--- NOTE | 2017-12-09 06:23 | SOAPPROG ---
SOAP Progress Note Assessment/Plan: POD #3: Emergent aortic root replacement with #27 freestyle bioprosthesis, replacement of ascending aorta under low flow circulation arrest, right axillary cannulation with a 10 mm Hemashield graft Aortic aneurysm with acute type A aortic dissection and severe aortic insufficiency s/p aortic root and ascending aorta replacement - CTs to be removed today, AL/FC/pacing wires out - Consider starting beta-carmelina tomorrow - CT chest/abd/pelvis to be performed today to further evaluate dissection Acute respiratory failure secondary to pulmonary edema with copious bloody secretions - Aggressive pulmonary toilet Acute blood loss anemia with coagulopathy and thrombocytopenia s/p massive blood transfusion - Stable CT output - Thrombocytopenia secondary to CPB - monitor and consider ordering HIT panel if not rebounding s/p right nephrectomy for renal cell carcinoma - Normal Cr with adequate UOP and good response to Lasix - Avoid nephrotoxins/hypotension h/o ACS/CAD s/p RCA stent - Continue ASA, BB, statin when appropriate Hypernatremia - D5W started, monitor DVT prophylaxis - SCDs, heparin held until platelets rebound. Subjective: Coughing quite a bit. Pain well-controlled. Objective: Vital Signs Temp Pulse Resp BP Pulse Ox 36.7 C 96 10 L 125/78 H 92 12/09/17 04:00 12/09/17 06:00 12/09/17 06:00 12/09/17 06:00 12/09/17 06:00 Microbiology 12/08/17 08:40 - Final Sputum, Induced/Suctioned Laboratory Results 12/09/17 05:00 12/09/17 05:00 12/08/17 12/09/17 12/10/17 05:59 05:59 05:59 Intake Total 1399 350 Output Total 4055 3850 Balance -2656 -3500 PT 18.6 SEC (12.0-15.0) H 12/06/17 20:05 INR 1.54 (0.83-1.16) H 12/06/17 20:05 Physical Exam - Physical Exam General Appearance: WD/WN, alert, no apparent distress EENT: No scleral icterus (R), No scleral icterus (L) Neck: normal inspection Respiratory: No respiratory distress Cardiac/Chest: regular rate, rhythm Abdomen: non-tender, soft, No distended Skin: normal color, warm/dry Extremities: pedal edema Neuro/Psych: no motor/sensory deficits, alert, normal mood/affect, oriented x 3 ICD10 Worksheet Patient Problems: Problems Problem Status Onset Acute blood loss anemia Acute Aortic dissection Acute Aortic valve insufficiency Acute Coagulopathy Acute Ruptured aortic aneurysm Acute S/P aortic valve replacement with stentless valve Acute ~12/06/17 S/P ascending aortic replacement Acute ~12/06/17 History of nephrectomy Chronic Hx of prostatectomy Chronic RUDI (obstructive sleep apnea) Chronic Presence of stent in right coronary artery Chronic Chest heaviness Acute
[2017-12-09] MEDS ORDERED: FUROSEMIDE 40 MG/4 ML VIAL IVP ONE (07:12)
[2017-12-09] MEDS ORDERED: D5W 1,000 ML IV SCH (07:15)
[2017-12-09] MEDS: PANTOPRAZOLE SODIUM 40 MG VIAL IVP SCH (08:14)
[2017-12-09] MEDS: CHLORHEXIDINE GLUCONATE 15 ML UDL PO SCH (08:14)
[2017-12-09] MEDS: SENNOSIDES/DOCUSATE SODIUM TAB PO SCH ×2 (08:15→20:51)
[2017-12-09] MEDS: ASPIRIN 81 MG CHEWABLE TAB PO SCH (08:15)
[2017-12-09] MEDS ORDERED: IOPAMIDOL (ISOVUE 370) 100 ML BTL IV ONE (09:35)
[2017-12-09] MEDS: HYDROCODONE/APAP 5/325 TAB PO PRN ×2 (16:04→20:50)
--- NOTE | 2017-12-09 16:37 | ECHO ---
[email or web address] [address] [address] Main: [phone] Fax: Transthoracic Echocardiogram Name: CORONA TEIXEIRA MR#: [id number] Study Date: 12/09/2017 Study Time: 08:10 AM Date of : 1950 Age: 67 year(s) Height: 177.8 cm (70 in.) Weight: 83.46 kg (184 lb.) BSA: 2.01 m2 Gender: Male Examination: Echo Indication: S/P aortic dissection; Ao graft Image Quality: Technically Difficult Contrast: Requested by: Blas Harry BP: 120 mmHg/76 mmHg Heart Rate: Rhythm: Indication: S/P aortic dissection; Ao graft Procedure Staff Manager Drive: Sravanthi Zhong Reading Physician: Bienvenido Yanes Requesting Provider: Conclusions: Normal size left ventricle. Mild concentric LV hypertrophy. Normal global systolic LV function. EF is 57 %. Mild basal septal hypokinesis. Overall low normal RV function. There appears to be a small area of akinesis seen in the mid to distal RV free wall with possible anuerysmal motion. Due to poor acoustical window post-op it is difficult to adequately visualize this area. The left atrium is normal in size. The right atrium is normal in size. The mitral valve is normal in appearance. Mild mitral valve regurgitation is present. Bicuspid aortic valve. There is no aortic valve regurgitation. There is no significant tricuspid valve regurgitation. S/P ascending aorta repair. The ascending aorta appears thickened. The ascending aorta velocity is slightly elevated noted in the SSN view. Dissection noted in the abdominal aorta. Questionable dilated right coronary artery.. Trivial pericardial effusion. There is a pleural effusion present. Measurements: Chambers Valvular Assessment AV/MV Valvular Assessment TV/PV Normal Normal Normal Name Value Range Name Value Range Name Value Range Ao Katie (MM): 4.3 cm (2.2 cm-3.7 AV Vmax: 1.45 m/s (1 m/s-1.7 PV Vmax: 1.00 m/s (0.6 m/s-0.9 cm) m/s) m/s) IVSd (2D): 1.0 cm (0.6 cm-1.1 AV maxP mmHg ( - ) PV PGmax: 4 mmHg ( - ) cm) AV meanP mmHg ( - ) Patient: CORONA TEIXEIRA Study Date: 12/09/2017 Page 1 of 2 08:10 AM LVDd (2D): 3.9 cm (4.2 cm-5.9 LVOT Vmax: 1.07 m/s (0.7 m/s-1.1 cm) m/s) LVDs (2D): 2.8 cm (2.1 cm-4 MV E Vmax: 0.62 m/s ( - ) cm) MV A Vmax: 0.61 m/s ( - ) LVPWd (2D): 0.9 cm (0.6 cm-1 MV E/A: 1.02 ( - ) cm) LVEF (2D): 57 (>=54 %) Continued Measurements: Valvular Assessment AV/MV Name Value MV DecTime: 197 m/s Findings: Left Ventricle: Normal size left ventricle. Mild concentric LV hypertrophy. Normal global systolic LV function. EF is 57 %. Mild basal septal hypokinesis. Right Ventricle: Normal size right ventricle. Overall low normal RV function. There appears to be a small area of akinesis seen in the mid to distal RV free wall with possible anuerysmal motion. Due to poor acoustical window post-op it is difficult to adequately visualize this area. Left Atrium: The left atrium is normal in size. Right Atrium: The right atrium is normal in size. Mitral Valve: The mitral valve is normal in appearance. Mild mitral valve regurgitation is present. Aortic Valve: Bicuspid aortic valve. There is no aortic valve regurgitation. No aortic valve stenosis is present. Tricuspid Valve: Tricuspid valve not well visualized. There is no significant tricuspid valve regurgitation. Pulmonic Valve: Pulmonary valve not well visualized. Aorta: S/P ascending aorta repair. The ascending aorta appears thickened. The ascending aorta velocity is slightly elevated noted in the SSN view. Dissection noted in the abdominal aorta. Questionable dilated right coronary artery.. Mildly dilated aortic root measuring 4.3 cm. Pericardium: Trivial pericardial effusion. There is a pleural effusion present. (No Signature Object) Patient: CORONA TEIXEIRA Study Date: 12/09/2017 Page 2 of 2 08:10 AM [id number]
[2017-12-09] MEDS ORDERED: PROTOCOL POTASSIUM 1 DOSE MISC PRN ×2 (17:06→20:26)
[2017-12-09] MEDS ORDERED: POTASSIUM CL 10 MEQ TAB PO ONE (20:29)
[2017-12-10] MEDS: LEVALBUTEROL 1.25 MG/3 ML DEYVIAL IH SCH ×4 (01:03→16:57)
[2017-12-10] MEDS ORDERED: POTASSIUM CL 10 MEQ TAB PO ONE ×3 (01:31→14:28)
[2017-12-10] MEDS: HYDROCODONE/APAP 5/325 TAB PO PRN ×3 (01:42→19:34)
--- NOTE | 2017-12-10 08:02 | SOAPPROG ---
SOAP Progress Note Assessment/Plan: Assessment: POD #4: Emergent aortic root replacement with #27 freestyle bioprosthesis, replacement of ascending aorta under low flow circulation arrest, right axillary cannulation with a 10 mm Hemashield graft Aortic aneurysm with acute type A aortic dissection and severe aortic insufficiency s/p aortic root and ascending aorta replacement - On ASA. Good BP control with SBP 100s. - CT chest/abd/pelvis was performed yesterday to further evaluate dissection. Reviewed by Dr. Hendrickson. Acute respiratory failure secondary to pulmonary edema with copious bloody secretions - Hemoptysis persists, however improving. Acute blood loss anemia with coagulopathy and thrombocytopenia s/p massive blood transfusion - H&H dropped today, however patient hemodynamically stable and asymptomatic. Will hold off on blood transfusion for now. Thrombocytopenia secondary to CPB - Improving with plt count 74 (58). Will continue to hold SQ heparin and follow. s/p right nephrectomy for renal cell carcinoma - Normal Cr with adequate UOP and good response to previous Lasix. - Avoid nephrotoxins/hypotension h/o ACS/CAD s/p RCA stent - Continue ASA. Will initiate statin today and will consider low dose BB tomorrow if BP stable. Hypernatremia - Improving with Na 145 (153). Will follow. Hypokalemia - K 3.7 (3.9). Will replete. DVT prophylaxis - SCDs, heparin held until platelets rebound. Deconditioning s/p surgery - Continue PT/OT. Encourage ambulation Plan: - Will consider starting BB tomorrow if BP stable. - Start Iron. - Start Lipitor. - Transfer to the floor today. Subjective: Patient reports good pain control. No complaints. Objective: Vital Signs Temp Pulse Resp BP Pulse Ox 36.7 C 79 8 L 115/70 93 12/10/17 04:00 12/10/17 07:00 12/10/17 07:00 12/10/17 07:00 12/10/17 07:00 Microbiology 12/08/17 08:40 - Final Sputum, Induced/Suctioned Laboratory Results 12/10/17 05:45 12/10/17 05:45 12/09/17 12/10/17 12/11/17 05:59 05:59 05:59 Intake Total 350 2405 Output Total 3850 2450 Balance -3500 -45 PT 18.6 SEC (12.0-15.0) H 12/06/17 20:05 INR 1.54 (0.83-1.16) H 12/06/17 20:05 Physical Exam - Physical Exam General Appearance: WD/WN, alert, no apparent distress Respiratory: lungs clear, decreased breath sounds (bases) Cardiac/Chest: regular rate, rhythm, other (No murmur or rubs. Sternum stable, sternotomy c/d/i) Abdomen: normal bowel sounds, non-tender, soft Skin: warm/dry Extremities: other (no lower extremity edema) Neuro/Psych: alert, normal mood/affect, oriented x 3 ICD10 Worksheet Patient Problems: Problems Problem Status Onset Acute blood loss anemia Acute Aortic dissection Acute Aortic valve insufficiency Acute Coagulopathy Acute Ruptured aortic aneurysm Acute S/P aortic valve replacement with stentless valve Acute ~12/06/17 S/P ascending aortic replacement Acute ~12/06/17 History of nephrectomy Chronic Hx of prostatectomy Chronic RUDI (obstructive sleep apnea) Chronic Presence of stent in right coronary artery Chronic Chest heaviness Acute
[2017-12-10] MEDS: PANTOPRAZOLE SODIUM 40 MG VIAL IVP SCH (09:10)
[2017-12-10] MEDS: SENNOSIDES/DOCUSATE SODIUM TAB PO SCH ×3 (09:10→19:47)
--- NOTE | 2017-12-10 11:12 | ASMTCMCOM ---
CM Note CM Note Notes: Spoke with Dr Hendrickson about PT/OT recommendations for inpatient rehab, he stated that patient will likely be discharged Tuesday 12/12, home with . If home care is recommended, Case Management will set up. Date Signed: 12/10/2017 11:12 AM Electronically Signed By:Kat Thomas RN
--- NOTE | 2017-12-10 12:47 | PDINTPN ---
[employer]or Progress Note Assessment/Plan: Assessment: S/p acute aortic dissection, repair. Hemodynamics stable. Drips off, doing well.. Acute pulmonary edema, resolving. Secondary to #1. Still coughing up small amounts of old blood. Chest x-ray continues to improve. Acute respiratory failure/ventilatory insufficiency. Secondary to #2 and prolonged aortic surgery. Resolved. Acute blood-loss anemia. Hematocrit 27, stable. Has received a total of 8 U of packed red blood cells as well as blood products. Metabolic: No issues identified. Off insulin drip. DVT prophylaxis: SCDs. Heparin being given subcu. History of nephrectomy: BUN 32 creatinine 1. Making good urine. Plan: Can transfer to PCU today. Continue bronchopulmonary treatments, encourage cough, increase ambulation. Follow laboratory intermittently. Consider her chest x-ray prior to discharge. Subjective: Feels better, up in chair eating. Coughing up less blood today. Denies chest pain. Walked. Some foot numbness but he feels this is resolving. Objective: Vital Signs Temp Pulse Resp BP Pulse Ox 36.7 C 93 16 104/71 91 L 12/10/17 09:00 12/10/17 12:00 12/10/17 12:00 12/10/17 12:00 12/10/17 12:00 Microbiology 12/08/17 08:40 - Final Sputum, Induced/Suctioned Sputum Culture - Final Laboratory Results 12/10/17 05:45 12/10/17 05:45 12/09/17 12/10/17 12/11/17 05:59 05:59 05:59 Intake Total 350 2405 400 Output Total 3850 2450 475 Balance -3500 -45 -75 PT 18.6 SEC (12.0-15.0) H 12/06/17 20:05 INR 1.54 (0.83-1.16) H 12/06/17 20:05 Laboratory Tests 12/10/17 05:45 Calcium 8.9 CXR: Improving bilateral infiltrates. Physical Exam - Physical Exam General Appearance: alert, no apparent distress, other (Up in chair) EENT: PERRL/EOMI, other (Nasal cannula in place at 4 L) Neck: normal inspection (No JVD) Respiratory: lungs clear (Anteriorly), decreased breath sounds (At bases, rales right base greater than left base), rhonchi (Intermittent rhonchi with cough), No wheezing Cardiac/Chest: regular rate, rhythm Abdomen: normal bowel sounds, non-tender, soft Skin: normal color, warm/dry Extremities: No pedal edema Neuro/Psych: no motor/sensory deficits, No cognition abnormalities ICD10 Worksheet Patient Problems: Problems Problem Status Onset RUDI (obstructive sleep apnea) Chronic Acute blood loss anemia Acute Coagulopathy Acute Presence of stent in right coronary artery Chronic Hx of prostatectomy Chronic History of nephrectomy Chronic S/P ascending aortic replacement Acute ~12/06/17 S/P aortic valve replacement with stentless valve Acute ~12/06/17 Aortic valve insufficiency Acute Ruptured aortic aneurysm Acute Chest heaviness Acute Aortic dissection Acute
[2017-12-10] MEDS ORDERED: CEPACOL LOZENGE PO PRN (14:25)
[2017-12-10] MEDS ORDERED: POLYETHYLENE GLYCOL 3350 17 GM PKT PO PRN (14:25)
[2017-12-10] MEDS ORDERED: MAGNESIUM HYDROXIDE 30 ML UDCUP PO PRN (14:25)
[2017-12-10] MEDS ORDERED: BISACODYL 10 MG SUPP PR PRN (14:25)
[2017-12-10] MEDS ORDERED: ACETAMINOPHEN 325 MG TAB PO PRN (14:25)
[2017-12-10] MEDS ORDERED: LACTULOSE 20 GM/30 ML UDCUP PO PRN (14:25)
[2017-12-10] MEDS ORDERED: HYDROCODONE/APAP 5/325 TAB PO PRN (14:25)
[2017-12-10] MEDS: FERROUS SULFATE 325 MG TAB PO SCH (19:47)
[2017-12-10] MEDS: ATORVASTATIN CALCIUM 20 MG TAB PO SCH (19:47)
[2017-12-10] MEDS: SODIUM CL NASAL 45 ML BTL EACHNARE SCH (19:48)
[2017-12-11] MEDS: LEVALBUTEROL 1.25 MG/3 ML DEYVIAL IH SCH ×4 (00:35→17:19)
[2017-12-11] MEDS: HYDROCODONE/APAP 5/325 TAB PO PRN (03:33)
[2017-12-11] MEDS ORDERED: POTASSIUM CL 10 MEQ TAB PO ONE (05:47)
[2017-12-11] MEDS: traMADol 50 MG TAB PO PRN ×4 (07:33→22:34)
--- NOTE | 2017-12-11 08:24 | SOAPPROG ---
SOAP Progress Note Assessment/Plan: POD #4 Emergent aortic root replacement with #27 freestyle bioprosthesis, replacement of ascending aorta under low flow circulation arrest, right axillary cannulation with a 10 mm Hemashield graft Aortic aneurysm with acute type A aortic dissection and severe aortic insufficiency s/p aortic root and ascending aorta replacement - On ASA. Good BP control with SBP 110-130s. Will start low dose BB today. - CT chest/abd/pelvis was performed to further evaluate dissection, which was reviewed by Dr. Hendrickson. Acute respiratory failure secondary to pulmonary edema with copious bloody secretions - Hemoptysis persists, however continues to improve. Acute blood loss anemia with coagulopathy and thrombocytopenia s/p massive blood transfusion - H&H stable today, on Iron. Thrombocytopenia secondary to CPB - Improving with plt count 90 (74). Will continue to hold SQ heparin and follow. s/p right nephrectomy for renal cell carcinoma - Normal Cr with adequate UOP. On Lasix. - Avoid nephrotoxins/hypotension h/o ACS/CAD s/p RCA stent - Continue ASA and statin. Will start low dose BB today. Hypernatremia - Resolving with Na 142 (145). Will follow. Hypokalemia - K 3.8. On potassium replacement protocol. DVT prophylaxis - SCDs, heparin held until platelets rebound. Deconditioning s/p surgery - Continue PT/OT. Encourage ambulation Subjective: "I haven't had a bowel movement in 5 days. Patient reports good pain control. Objective: Vital Signs Temp Pulse Resp BP Pulse Ox 36.9 C 79 28 H 132/87 H 88 L 12/11/17 07:17 12/11/17 07:17 12/11/17 07:17 12/11/17 07:17 12/11/17 07:17 Microbiology 12/08/17 08:40 - Final Sputum, Induced/Suctioned Sputum Culture - Final Laboratory Results 12/10/17 05:45 12/11/17 03:47 12/10/17 12/11/17 12/12/17 05:59 05:59 05:59 Intake Total 2405 1850 400 Output Total 2450 1300 150 Balance -45 550 250 PT 18.6 SEC (12.0-15.0) H 12/06/17 20:05 INR 1.54 (0.83-1.16) H 12/06/17 20:05 Physical Exam - Physical Exam General Appearance: WD/WN, alert, no apparent distress Respiratory: lungs clear, decreased breath sounds (right base) Cardiac/Chest: other (No murmurs or rubs. Sternum stable, sternotomy c/d/i. ) Abdomen: normal bowel sounds, non-tender, soft, other (slightly distended) Skin: warm/dry Extremities: other (No lower extremity edema) Neuro/Psych: alert, normal mood/affect, oriented x 3 ICD10 Worksheet Patient Problems: Problems Problem Status Onset Acute blood loss anemia Acute Aortic dissection Acute Aortic valve insufficiency Acute Coagulopathy Acute Ruptured aortic aneurysm Acute S/P aortic valve replacement with stentless valve Acute ~12/06/17 S/P ascending aortic replacement Acute ~12/06/17 History of nephrectomy Chronic Hx of prostatectomy Chronic RUDI (obstructive sleep apnea) Chronic Presence of stent in right coronary artery Chronic Chest heaviness Acute
[2017-12-11] MEDS: SENNOSIDES/DOCUSATE SODIUM TAB PO SCH ×2 (08:56→20:53)
[2017-12-11] MEDS: ATORVASTATIN CALCIUM 20 MG TAB PO SCH (08:56)
[2017-12-11] MEDS: PANTOPRAZOLE SODIUM 40 MG VIAL IVP SCH (08:56)
[2017-12-11] MEDS: FUROSEMIDE 40 MG TAB PO SCH ×2 (08:56→15:48)
[2017-12-11] MEDS: FERROUS SULFATE 325 MG TAB PO SCH ×2 (08:56→20:53)
[2017-12-11] MEDS: SODIUM CL NASAL 45 ML BTL EACHNARE SCH ×2 (08:59→21:00)
[2017-12-11] MEDS ORDERED: NEOMY SULF/BACITRAC ZN/POLY 30 GM OINTTUBE TP SCH (09:00)
[2017-12-11] MEDS ORDERED: BISACODYL 10 MG SUPP PR ONE (10:42)
--- NOTE | 2017-12-11 11:58 | ASMTCMCOM ---
CM Note CM Note Notes: Spoke with patient's Renetta about her concerns about patient's discharge. She said that Dr Hendrickson mentioned patient going home tomorrow and that he will need "lots of rehab," and she's not sure how to interpret that. She also wonders if he is safe to come home given his current debilitated state and mobility challenges. They live in a historic home with lots of stairs and no bathroom on the first floor. I explained that we would look at patient's needs holistically, taking into account what PT/OT recommend as well. I explained the options of SNF, home care, and private duty caregiving. I sent referrals to [facility] and [facility] in the event that patient's is not able to provide what he needs at home immediately after discharge. I also placed a call to [facility], asking them to see patient tomorrow since his expressed that he is beginning to express some grieving/reflection around his traumatic cardiac event. Case Managment will follow. D/C plan TBD Date Signed: 12/11/2017 11:58 AM Electronically Signed By:Kat Thomas RN
[2017-12-11] MEDS ORDERED: LEVALBUTEROL 1.25 MG/3 ML DEYVIAL IH PRN (18:33)
[2017-12-11] MEDS: POTASSIUM CL 20 MEQ TAB PO SCH (20:53)
[2017-12-11] MEDS: METOPROLOL TARTRATE 25 MG TAB PO SCH (20:53)
[2017-12-12] MEDS: traMADol 50 MG TAB PO PRN ×2 (04:32→19:38)
--- NOTE | 2017-12-12 08:05 | SOAPPROG ---
SOAP Progress Note Assessment/Plan: Assessment: POD#6 Emergent replacement of aortic valve and ascending aorta with #27 mm Freestyle porcine root and #26 Hemashield interposition graft. Low flow hypothermic circulatory arrest, right axillary artery cannulation. Acute type A aortic dissection extending into the abdominal aorta - With severe AI, acute pulm edema, hemopericardium and early tamponade physiology. Intraop evidence of intimal tear in the mid asc aorta and external leak proximally near the RCA. Valve, ao root and asc ao replaced. Residual dissection beyond the left subclavian artery to be managed medically. No evidence end-organ malperfusion. Acute respiratory failure secondary to pulmonary edema - Significant ventilatory support early postop gradually better. Decreasing oxygen requirements with resolution of edema and bloody secretions. Successfully extubated POD#2. Acute expected blood loss anemia with coagulopathy and thrombocytopenia - Exacerbated by friable tissue, DHCA, and CPB. Stable s/p massive blood transfusion. Platelet rebound noted. Started on 2 wk course Fe suppl. Single kidney - s/p right nephrectomy for renal cell carcinoma. Preop Cr 1.3. Minimal postop renal insufficiency with careful fluid management, MAPs > 70, and avoidance nephrotoxins. Stable CAD - s/p RCA stent. Off CPB without RWMA. Secondary prevention with ASA , BB, and statin. Plan: Resume VTE prophylaxis with SQ hep. Cont metop tartrate 12.5 mg BID. Relax diuresis. Inc activity and pulm toilet. Dispo - SNF ([facility]) next 24h pending bed availability. 12/12/17 07:59 Subjective: Doing ok. Slept well. Improved pain control w Horatio. Hesitant to make any post hospital decisions without 's approval. Objective: Vital Signs Temp Pulse Resp BP Pulse Ox 36.8 C 81 18 112/75 89 L 12/12/17 07:45 12/12/17 07:45 12/12/17 07:45 12/12/17 07:45 12/12/17 07:45 Laboratory Results 12/12/17 03:22 12/12/17 03:22 12/11/17 12/12/17 12/13/17 05:59 05:59 05:59 Intake Total 1850 2340 Output Total 1300 3825 200 Balance 550 -1485 -200 PT 18.6 SEC (12.0-15.0) H 12/06/17 20:05 INR 1.54 (0.83-1.16) H 12/06/17 20:05 HR and BP well controlled. 2-3 Lpm suppl O2 req. Vigorous diuresis on BID lasix. Physical Exam - Physical Exam General Appearance: alert, no apparent distress Respiratory: lungs clear Cardiac/Chest: regular rate, rhythm, other (Sternotomy CDI) Skin: warm/dry Extremities: other (no visible edema) ICD10 Worksheet Patient Problems: Problems Problem Status Onset Acute blood loss anemia Acute Aortic dissection Acute Aortic valve insufficiency Acute Coagulopathy Acute Ruptured aortic aneurysm Acute S/P aortic valve replacement with stentless valve Acute ~12/06/17 S/P ascending aortic replacement Acute ~12/06/17 History of nephrectomy Chronic Hx of prostatectomy Chronic RUDI (obstructive sleep apnea) Chronic Presence of stent in right coronary artery Chronic Chest heaviness Acute
[2017-12-12] MEDS: ATORVASTATIN CALCIUM 20 MG TAB PO SCH (09:45)
[2017-12-12] MEDS: POTASSIUM CL 20 MEQ TAB PO SCH (09:45)
[2017-12-12] MEDS: FERROUS SULFATE 325 MG TAB PO SCH ×2 (09:46→21:29)
[2017-12-12] MEDS: FUROSEMIDE 40 MG TAB PO SCH ×2 (09:46→17:22)
[2017-12-12] MEDS: ASPIRIN EC 81 MG TAB PO SCH (09:46)
[2017-12-12] MEDS: PANTOPRAZOLE SODIUM 40 MG TAB PO SCH (09:46)
[2017-12-12] MEDS: METOPROLOL TARTRATE 25 MG TAB PO SCH ×2 (09:46→21:29)
[2017-12-12] MEDS: SODIUM CL NASAL 45 ML BTL EACHNARE SCH (09:50)
[2017-12-12] MEDS: SENNOSIDES/DOCUSATE SODIUM TAB PO SCH (09:56)
[2017-12-12] MEDS ORDERED: LR 1,000 ML IV ONE (15:22)
--- NOTE | 2017-12-12 15:25 | ASMTCMCOM ---
CM Note CM Note Notes: Spoke with patient's Renetta at length again today. She is ok with patient going to [facility]. She did, however, request that he stay here tonight, so Dr Hendrickson approved that. We will likely discharge to [facility] tomorrow. I notified Ayesha at the facility. Also of note, patient's PCP is with [facility], and Vani Mojica can help with care coordination if needed. Date Signed: 12/12/2017 03:24 PM Electronically Signed By:Kat Thomas RN
[2017-12-12] MEDS: HEPARIN 5,000 UNIT/0.5 ML SYR SC SCH ×2 (15:42→21:30)
[2017-12-13] MEDS: traMADol 50 MG TAB PO PRN (04:14)
[2017-12-13 06:28] VITALS: RESP 18
[2017-12-13] MEDS: HEPARIN 5,000 UNIT/0.5 ML SYR SC SCH ×2 (06:38→14:42)
--- NOTE | 2017-12-13 06:52 | SOAPPROG ---
SOAP Progress Note Assessment/Plan: Assessment: POD#7 Emergent replacement of aortic valve and ascending aorta with #27 mm Freestyle porcine root and #26 Hemashield interposition graft. Low flow hypothermic circulatory arrest, right axillary artery cannulation. Acute type A aortic dissection extending into the abdominal aorta - With severe AI, acute pulm edema, hemopericardium and early tamponade physiology. Intraop evidence of intimal tear in the mid asc aorta and external leak proximally near the RCA. Valve, ao root and asc ao replaced. Residual dissection beyond the left subclavian artery to be managed medically. No evidence end-organ malperfusion. Acute respiratory failure secondary to pulmonary edema - Significant ventilatory support early postop gradually better as edema and bloody secretions resolved. Successfully extubated POD#2. Acute expected blood loss anemia with coagulopathy and thrombocytopenia - Exacerbated by friable tissue, DHCA, and CPB. Stable s/p massive blood transfusion. Platelet rebound noted. Started on 2 wk course Fe suppl. Single kidney - s/p right nephrectomy for renal cell carcinoma. Preop Cr 1.3. Minimal postop renal insufficiency with careful fluid management, MAPs > 70, and avoidance nephrotoxins. Stable CAD - s/p RCA stent. Off CPB without RWMA. Secondary prevention with ASA , BB, and statin. Plan: Ok for discharge to SNF ([facility]). Instructions re diet, meds, activity, f/u and wound care to be reviewed in presence of . 12/13/17 06:52 Subjective: Comfortable. No acute concerns. Objective: Vital Signs Temp Pulse Resp BP Pulse Ox 36.7 C 85 18 129/80 H 91 L 12/13/17 04:00 12/13/17 04:00 12/13/17 04:00 12/13/17 04:00 12/13/17 04:00 Laboratory Results 12/12/17 03:22 12/13/17 03:44 12/12/17 12/13/17 12/14/17 05:59 05:59 05:59 Intake Total 2340 1625 Output Total 3825 950 Balance -1485 675 PT 18.6 SEC (12.0-15.0) H 12/06/17 20:05 INR 1.54 (0.83-1.16) H 12/06/17 20:05 HR controlled. Some PACs and a abby of AF w CVR last noc. SBP and lytes ok. Balanced I/Os. Physical Exam - Physical Exam General Appearance: alert, no apparent distress Respiratory: lungs clear Cardiac/Chest: regular rate, rhythm, other (Sternotomy and CT sites healing well ) Abdomen: non-tender, soft Skin: warm/dry Extremities: other (no visible edema) ICD10 Worksheet Patient Problems: Problems Problem Status Onset Acute blood loss anemia Acute Aortic dissection Acute Aortic valve insufficiency Acute Coagulopathy Acute Ruptured aortic aneurysm Acute S/P aortic valve replacement with stentless valve Acute ~12/06/17 S/P ascending aortic replacement Acute ~12/06/17 History of nephrectomy Chronic Hx of prostatectomy Chronic RUDI (obstructive sleep apnea) Chronic Presence of stent in right coronary artery Chronic Chest heaviness Acute
[2017-12-13] MEDS: FERROUS SULFATE 325 MG TAB PO SCH (08:45)
[2017-12-13] MEDS: ATORVASTATIN CALCIUM 20 MG TAB PO SCH (08:45)
[2017-12-13] MEDS: PANTOPRAZOLE SODIUM 40 MG TAB PO SCH (08:45)
[2017-12-13] MEDS: ASPIRIN EC 81 MG TAB PO SCH (08:45)
[2017-12-13] MEDS ORDERED: METOPROLOL TARTRATE 25 MG TAB PO SCH (09:00)
[2017-12-13 12:34] VITALS: BP 96/72; PULSE 82; TEMP 98.1; O2SAT 91
--- NOTE | 2017-12-13 14:34 | PDIAF ---
- Diagnosis Diagnosis: type a aortic dissection s/p emergent rpr; postop PACs/PAF Code Status: Full Code - Medication Management Discharge Medications: Medications to Continue on Transfer Cholecalciferol Vit D3 [Vitamin D3 (*)] 1,000 units PO DAILY 10/21/14 [Last Taken Unknown] Ibuprofen [Advil] 200 mg PO DAILY PRN 10/21/14 [Last Taken Unknown] Multivitamins [Multivitamin (*)] 1 each PO DAILY 10/21/14 [Last Taken Unknown] Aspirin EC [Aspirin EC 81 mg (*)] 81 mg PO EVERY OTHER DAY 12/06/17 [Last Taken Unknown] Acetaminophen [Tylenol 325mg (*)] 325 - 650 mg PO Q4HRS PRN #100 tab 12/13/17 [ Last Taken Unknown] Atorvastatin Calcium [Lipitor 20 mg (*)] 20 mg PO DAILY #30 tab 12/13/17 [Last Taken Unknown] Hydrocodone/APAP 5/325 [[place] 5/325 (*)] 1 tab PO HS PRN tab 12/13/17 [Last Taken Unknown] Metoprolol Tartrate [Lopressor 25 mg (*)] 25 mg PO BID tab 12/13/17 [Last Taken Unknown] Polyethylene Glycol 3350 [Miralax 17 gm (*)] 17 gm PO DAILY PRN pkt 12/13/17 [ Last Taken Unknown] traMADol [Ultram 50 mg (*)] 50 - 100 mg PO Q4HRS PRN tab 12/13/17 [Last Taken Unknown] Discharge Medications: Refer to the Discharge Home Medication list for PRN reason. PICC Care - Routine: N/A - Orders Services needed: Registered Nurse (cardiorespiratory monitoring), Physical Therapy (Sternal precautions x 3 more weeks) Oxygen: prn SpO2 < 90% Diet Recommendation: no restrictions on diet Diet Texture: Regular Texture Diet, Thin Liquids, Meds Whole w/Liquids Weigh Patient: daily Menezes: Not applicable Wound Care Instructions: Daily soap and water. Ok to leave all wounds open to air. Avoid ointments or underwater immersion until scabs off Activity/Weight Bearing Restrictions: Sternal precautions x 3 more weeks. Avoid push pull activities. Avoid lifting > 10 lbs with an outstretched arm Additional: Call [facility] ([facility]) for wt gain > 2 lbs overnight, progressive leg swelling, resting HR < 60 or > 120, SBP consistently < 90 or > 140, suppl O2 req > 4 lpm, or any wound concerns - Labs/Radiology BMP Date: 12/19/17 (results to [facility] for Madhavi) CBC w/diff Date: 12/19/17 (as above) Imaging Orders: CXR prior to surgical appointment - Follow Up Care Current Providers and Referrals: Kathy Kennedy MD [Primary Care Provider] - As per Instructions Kenneth Hendrickson DO [Doctor of Osteopathy] - 12/20/17 9:30 am Migue Vickers MD [Medical Doctor] -
--- NOTE | 2017-12-13 19:26 | PDDCSUM ---
Discharge Summary Discharge Summary: DATE OF ADMISSION: 12/06/17 DATE OF DISCHARGE: 12/13/17 DISPOSITION: Transferred to [facility] PRINCIPAL DISCHARGE DIAGNOSES: 1. Acute Type A aortic dissection with severe aortic insufficiency and cardiac tamponade, converted to a Type B dissection following emergent aortic valve, aortic root and ascending aortic replacement with a porcine composite graft. 2. Acute respiratory failure due to pulmonary edema secondary to acute aortic insufficiency 3. Acute expected blood loss anemia with thrombocytopenia and coagulopathy 4. Postoperative premature atrial complexes and paroxysmal atrial fibrillation FOLLOW UP APPOINTMENTS: 1. CV surgery: with Dr Hendrickson at [facility] on 12/20 at 9:30 am. 2. Cardiology: with Dr Vickers at [facility] within 4-6 weeks. Appointment to be established during surgical visit. FOLLOW UP TESTIN. CBC and BMP on 12/19. Results to [facility]. 2. CXR prior to surgical appointment. ALLERGIES/SENSITIVITIES: NKDA DISCHARGE MEDICATIONS: see medical administration record for full details Essentially as on admission (Vit D3, MVI, Ibuprofen prn)with the following adjustments: Increase baby aspirin use from every other day to once daily NEW prescriptions: 1. Lipitor 20 mg daily. 2. Metoprolol tartrate 25 mg BID. Hold for SBP < 90 or HR < 60. 3. Tramadol 50-100 mg q6h prn pain. 4. [place] 5/325 one half to two tabs q8h prn breakthrough discomfort. 5. Oxygen at 3 Lpm continuously or as directed by SpO2. CONSULTANTS: Cardiology (Farzana), Pulmonology/critical care (Ton) PROCEDURES/IMAGIN/9 (Farzana): Transthoracic echocardiogram 12/06 (Madhavi): Emergent median sternotomy. Aortic valve and root replacement with a 27 mm Medtronic Freestyle porcine root. Ascending aortic replacement with a 26 mm Hemashield graft under hypothermic, low flow circulation arrest. Peripheral cardiopulmonary bypass and antegrade cerebral perfusion via right axillary artery. 12/09 Chest/Abdominal CTA 12/09 (Farzana): Transthoracic echocardiogram HISTORY OF PRESENT ILLNESS: 67 yo male with a hx of an aneurysmal ascending aorta with mild insufficiency of a trileaflet aortic valve evaluated in the ER for severe post exertional chest pain with bradycardia, hypotension, and leg paresthesias. Seen by echo to have significant AI, a dissection flap in the ascending aorta (as well as the abdominal aorta), and a pericardial effusion. Suspected to have a leaking type A aortic dissection and taken emergently to the OR. PERTINENT PAST MEDICAL HISTORY: 4.8 cm asc aorta by CTA in 2013, CAD s/p ANGELA to distal RCA 2013, Prostate CA s/ p prostatectomy, Renal cell CA s/p right nephrectomy, Obstructive sleep apnea ABBREVIATED HOSPITAL COURSE BY ACTIVE PROBLEM LIST: 1. Acute type A aortic dissection extending into the abdominal aorta - With severe AI, acute pulm edema, hemopericardium and early tamponade physiology. Intraop evidence of intimal tear in the mid asc aorta and external leak proximally near the RCA. Valve, ao root and asc ao replaced. Residual dissection beyond the left subclavian artery to be managed medically. No evidence end-organ malperfusion. 2. Acute respiratory failure secondary to pulmonary edema - Significant ventilatory support early postop gradually better as edema and bloody secretions resolved. Successfully extubated POD#2. 3. Acute expected blood loss anemia with coagulopathy and thrombocytopenia - Exacerbated by friable tissue, DHCA, and CPB. Stable s/p massive blood transfusion. Platelet rebound noted. 4. Postop atrial ectopy - Frequent PACs with a couple bursts of AF. BB uptitrated as tolerated. 5. Single kidney - s/p right nephrectomy for renal cell carcinoma. Preop Cr 1.3. Minimal postop renal insufficiency with careful fluid management, MAPs > 70 , and avoidance nephrotoxins. 6. Stable CAD - s/p RCA stent. Off CPB without RWMA. Secondary prevention with ASA, BB, and statin.
--- NOTE | 2017-12-14 15:56 | ASDISCHSUM ---
Discharge Information Plan Status:SNF Medically Cleared to Leave:12/12/2017 Discharge Date:12/13/2017 04:09 PM CM D/C Disposition: ADT D/C Disposition:Intermediate Facility Projected Discharge Date:12/13/2017 11:00 AM Transportation at D/C: Discharge Delay Reason: Follow-Up Date:12/13/2017 11:00 AM Discharge Slot: Final Diagnosis: Placement Information Referral Type:*Long Term/SNF Referral ID:[id number] Provider Name:[facility] Address 1:[address] Address 2: City:[place] Selection Factors: State:[place] Patient Contact Information Contact Name:ROSITA Relationship: Address:[address] City:[place] Alternate Phone: State/Zip Code:[place] [address] Email: Financial Information Financial Class: Primary Plan Desc:MEDICARE INPATIENT Primary Plan Number:[id number] Secondary Plan Desc:AARP/MDR SUPPLEMENT Secondary Plan Number:[id number] Assessment Information [facility] CM Progress Note CM Note CM Note Notes: Patient presented to the ED via EMS after collapsing [facility] Patient had emergent OHS for acute aortic aneurysm. Patient's is Renetta (c: [phone], h:[phone]) and she was provided information , updates and emotional support while waiting for patient in OR. Renetta and Conrad have two adult children, Vandana lives in [place] and Thuan lives in [place]. Renetta was able to connect with both children. This CM stayed with Renetta until about 12:15p when a family friend Enrique ([phone]) arrived. Patient is usually active and otherwise healthy (does has a history of one cardiac stent, nephrectomy due to cancer and prostate cancer). Renetta provided CM number for any further needs. Exact DC needs unknown. CM to follow. Date Signed: 12/06/2017 07:33 PM Electronically Signed By:Zahra Banegas RN [facility] CM Progress Note CM Note CM Note Notes: Plan for patient is to wean from the vent, keep thalia and gould until he is extubated, consider a PICC for vascular access, and strict NPO until SILK SCREEN PRINTER MACHINE clears patient. Patient has not been able to participate in therapy evals as of yet. D/C needs TBD. CM will follow. Date Signed: 12/08/2017 12:50 PM Electronically Signed By:Lida Piper LCSW [facility] CM Progress Note CM Note CM Note Notes: Spoke with Dr Hendrickson about PT/OT recommendations for inpatient rehab, he stated that patient will likely be discharged Tuesday 12/12, home with . If home care is recommended, Case Management will set up. Date Signed: 12/10/2017 11:12 AM Electronically Signed By:Kat Thomas RN [facility] CM Progress Note CM Note CM Note Notes: Spoke with patient's Renetta about her concerns about patient's discharge. She said that Dr Hendrickson mentioned patient going home tomorrow and that he will need "lots of rehab," and she's not sure how to interpret that. She also wonders if he is safe to come home given his current debilitated state and mobility challenges. They live in a historic home with lots of stairs and no bathroom on the first floor. I explained that we would look at patient's needs holistically, taking into account what PT/OT recommend as well. I explained the options of SNF, home care, and private duty caregiving. I sent referrals to [facility] and [facility] in the event that patient's is not able to provide what he needs at home immediately after discharge. I also placed a call to [facility], asking them to see patient tomorrow since his expressed that he is beginning to express some grieving/reflection around his traumatic cardiac event. Case Managment will follow. D/C plan TBD Date Signed: 12/11/2017 11:58 AM Electronically Signed By:Kat Thomas RN [facility] ERVIN Progress Note CM Note CM Note Notes: Spoke with patient's Renetta at length again today. She is ok with patient going to [facility]. She did, however, request that he stay here tonight, so Dr Hendrickson approved that. We will likely discharge to [facility] tomorrow. I notified Ayesha at the facility. Also of note, patient's PCP is with [facility], and Vani Mojica can help with care coordination if needed. Date Signed: 12/12/2017 03:24 PM Electronically Signed By:Kat Thomas RN Case Management Discharge Plan Note Case Management Discharge Discharge Order Complete? Answers: Yes Patient to Obtain Answers: Other Notes: [facility] Medications Transportation Arranged Answers: Other Notes: [facility] Transport will Pick (Date 12/13/2017 03:45 PM & Time) EMTALA Complete Answers: No Case Management Transport Answers: Yes Form Complete Faxed Final Orders Answers: Yes Agency/Facility Transfer Answers: Yes Report Printed & Faxed to Receiving Agency Family Notified Answers: No Discharge Comments Notes: CM spoke w/ [facility] regarding d/c POC. Pt is being discharged to [facility] today. CM provided [facility] w/ phone number to give report. CM sent d/c orders to [facility]. CM available for changes. Plan: [facility] Date Signed: 12/13/2017 03:05 PM Electronically Signed By:JOVON Moreira Intervention Information Intervention Type:*IM-Signed Date of Service:12/13/2017 04:04 PM Patient Type:Inpatient Staff Member:Lou Huntley Hours: Discipline: Severity: Comment:
== END 2017-12-13 16:09 | DRG 219 ==
LOC: EDUNIT# → F2N 18:12 → F2W 12-10 16:55
PROVIDERS: ADMIT Thoracic Surgery (Cardiothoracic Vascular Surgery); ATTEND Thoracic Surgery (Cardiothoracic Vascular Surgery)
PROC: 02RX08Z Replacement of Thoracic Aorta, Ascending/Arch with Zooplastic Tissue, Open Approach (ICD-10-PCS; principal; 2017-12-06 10:30)
PROC: 5A1221Z Performance of Cardiac Output, Continuous (ICD-10-PCS; principal; 2017-12-06 10:30)
PROC: 30233K1 Transfusion of Nonautologous Frozen Plasma into Peripheral Vein, Percutaneous Approach (ICD-10-PCS; principal; 2017-12-06 10:30)
PROC: 30233M1 Transfusion of Nonautologous Plasma Cryoprecipitate into Peripheral Vein, Percutaneous Approach (ICD-10-PCS; principal; 2017-12-06 10:30)
PROC: 30233N1 Transfusion of Nonautologous Red Blood Cells into Peripheral Vein, Percutaneous Approach (ICD-10-PCS; principal; 2017-12-06 10:30)
PROC: 30233R1 Transfusion of Nonautologous Platelets into Peripheral Vein, Percutaneous Approach (ICD-10-PCS; principal; 2017-12-06 10:30)
DX: I71.01 Dissection of thoracic aorta (principal); I31.4 Cardiac tamponade; J96.00 Acute respiratory failure, unspecified whether with hypoxia or hypercapnia; D62 Acute posthemorrhagic anemia; I48.0 Paroxysmal atrial fibrillation; I25.10 Atherosclerotic heart disease of native coronary artery without angina pectoris; G47.33 Obstructive sleep apnea (adult) (pediatric); E87.0 Hyperosmolality and hypernatremia; E87.6 Hypokalemia; D69.6 Thrombocytopenia, unspecified; I25.2 Old myocardial infarction; Z85.528 Personal history of other malignant neoplasm of kidney; Z85.46 Personal history of malignant neoplasm of prostate; Z90.5 Acquired absence of kidney; Z95.5 Presence of coronary angioplasty implant and graft
CPT/HCPCS: 82947-QW; 92526-GN; 92610-GN; 96374; 97116-GP; 97161-GP; 97165-GO; 97535-GO; 99001-90; C1768; G8978-GP-CK; G8979-GP-CJ; G8987-GO-CK; G8988-GO-CI; G8996-GN-CJ; G8997-GN-CH; G8998-GN-CH; J0171; J0690; J1250; J1265; J1815; J1940; J2150; J2250; J2370; J2405; J2704; J2720; J2765; J3010; P9012; P9016; P9017; P9035; P9041; Q9967

== ENCOUNTER → 2017-12-20 | Outpatient (CLI) | payer OTHER, MEDICARE | LOC: FIMAGING 08:59 | PROVIDERS: ATTEND Thoracic Surgery (Cardiothoracic Vascular Surgery) | DX: J90 Pleural effusion, not elsewhere classified (principal); I51.7 Cardiomegaly; Z98.890 Other specified postprocedural states ==

== ENCOUNTER → 2017-12-27 | Outpatient (CLI) | payer OTHER, MEDICARE | LOC: FIMAGING 10:35 | PROVIDERS: ATTEND Thoracic Surgery (Cardiothoracic Vascular Surgery) | DX: Z09 Encounter for follow-up examination after completed treatment for conditions other than malignant neoplasm (principal); J90 Pleural effusion, not elsewhere classified; J98.11 Atelectasis ==

== ENCOUNTER 2018-01-09 14:31 | Emergency (ER) | payer OTHER, MEDICARE ==
--- NOTE | 2018-01-09 15:39 | EDPHY ---
H & P Time Seen by Provider: 01/09/18 15:37 HPI/ROS: Chief complaint. Abnormal chest CT HPI. 67-year-old male presents emergency department after having a routine follow-up CT scan of his abdomen and chest for a follow-up after coronary artery bypass graft repair of a thoracic aortic dissection 5 weeks ago. The patient was completely asymptomatic and it was read teen follow-up. However he was found to have small pulmonary embolus x2 in the segmental branches of the right lower lobe. He was sent to the emergency department. Patient does not have shortness of breath. He does not have chest discomfort. His pain is not worse with deep breathing. He has no leg symptoms other than since his thoracic dissection repair he has had some numbness to both feet. Patient has been doing cardiac rehab without any symptoms. ROS Constitutional. no fever/chills, no weakness Eyes. no problems with vision ENT. no sore throat, no nasal drainage Cardiovascular. no chest pain Respiratory. no shortness of breath, no cough Abdominal. no abdominal pain, no nausea/vomiting, no diarrhea . no problems urinating MS. no calf pain/swelling, no neck/back pain, no joint pain Skin. no rash Lymph. no swollen glands Neuro. no headache, no dizziness, no difficulty walking or with speech Past Medical/Surgical History: Past medical history is significant for kidney and prostate cancer, nephrectomy , cardiac stent thoracic aortic aneurysm dissection. Aortic valve replacement, hypertension Social History: , nonsmoker, no alcohol Smoking Status: Never smoked Physical Exam: General Appearance: Alert well-developed male no distress vital signs are stable Eyes: Pupils equal and round no pallor or injection. ENT, Mouth: Mucous membranes are moist. Respiratory: There are no retractions, lungs are clear to auscultation. Cardiovascular: Regular rate and rhythm. Gastrointestinal: Abdomen is soft and nontender, no masses, bowel sounds normal. Neurological: Awake and alert, sensory and motor exams grossly normal. Skin: Warm and dry, no rashes. Musculoskeletal: Neck is supple nontender. Extremities symmetrical, full range of motion. Psychiatric: Patient is oriented X 3, there is no agitation. Constitutional: Initial Vital Signs Temperature (C) 36.4 C 01/09/18 14:36 Heart Rate 76 01/09/18 14:36 Respiratory Rate 18 01/09/18 14:36 Blood Pressure 132/94 H 01/09/18 14:36 O2 Sat (%) 96 01/09/18 14:36 O2 Delivery Mode Room Air Allergies/Adverse Reactions: No Known Allergies Allergy (Verified 12/06/17 20:04) Home Medications: Medication Instructions Recorded Cholecalciferol Vit D3 [Vitamin D3 1,000 units PO DAILY 10/21/14 (*)] Ibuprofen [Advil] 200 mg PO DAILY PRN 10/21/14 Multivitamins [Multivitamin (*)] 1 each PO DAILY 10/21/14 Aspirin EC [Aspirin EC 81 mg (*)] 81 mg PO EVERY OTHER DAY 12/06/17 Acetaminophen [Tylenol 325mg (*)] 325 - 650 mg PO Q4HRS PRN #100 tab 12/13/17 Atorvastatin Calcium [Lipitor 20 20 mg PO DAILY #30 tab 12/13/17 mg (*)] Hydrocodone/APAP 5/325 [[place] 1 tab PO HS PRN tab 12/13/17 5/325 (*)] Metoprolol Tartrate [Lopressor 25 25 mg PO BID tab 12/13/17 mg (*)] traMADol [Ultram 50 mg (*)] 50 - 100 mg PO Q4HRS PRN tab 12/13/17 Rivaroxaban [Xarelto 15mg (*)] 15 mg PO BID #41 tab 01/09/18 Medical Decision Making - Diagnostics Imaging Results: Review of patient's CT scan from today shows new small volume pulmonary embolus in the segmental branches of the right lower lobe. New small to moderate right pleural effusion Well-seated prosthetic aortic valve and ascending aortic graft Resolved low attenuation intramural hematoma in the aortic arch Stable descending thoracic aortic dissection Procedures: IV normal saline ED Course/Re-evaluation: I consulted discussed case with Dr. Rodriguez who will see the patient in the emergency department I consulted discussed case with Dr. Hendrickson's PA who discussed case with Dr. yojana wu and it is fine to anticoagulate this patient. They will perform outpatient thoracentesis. On re-evaluation 5:00 p.m. patient is stable. He has been given Eliquis. I discussed treatment plan with the patient and his . They expressed understanding and agreement Differential Diagnosis: Patient has pulmonary embolus as well as recent thoracic aorta did dissection. Anticoagulation is fine with the cardiothoracic surgeon. Patient would be appropriate for outpatient management in that he is completely asymptomatic and the PE was found incidentally on routine follow-up. He is not hypoxic, tachycardic, dyspneic - Data Points Laboratory Results: Laboratory Results 01/09/18 16:00 01/09/18 16:20 01/09/18 01/09/18 01/09/18 16:20 16:00 16:00 WBC 6.30 10^3/uL 10^3/uL (3.80-9.50) RBC 3.93 10^6/uL L 10^6/uL (4.40-6.38) Hgb 11.4 g/dL L g/dL (13.7-17.5) Hct 36.0 % L % (40.0-51.0) MCV 91.6 fL fL (81.5-99.8) MCH 29.0 pg pg (27.9-34.1) MCHC 31.7 g/dL L g/dL (32.4-36.7) RDW 14.8 % % (11.5-15.2) Plt Count 235 10^3/uL 10^3/uL (150-400) MPV 10.1 fL fL (8.7-11.7) Neut % (Auto) 53.1 % % (39.3-74.2) Lymph % (Auto) 23.3 % % (15.0-45.0) [place] % (Auto) 14.0 % H % (4.5-13.0) Eos % (Auto) 8.1 % H % (0.6-7.6) Baso % (Auto) 1.3 % % (0.3-1.7) Nucleat RBC Rel Count 0.0 % % (0.0-0.2) Absolute Neuts (auto) 3.35 10^3/uL 10^3/uL (1.70-6.50) Absolute Lymphs (auto) 1.47 10^3/uL 10^3/uL (1.00-3.00) Absolute Monos (auto) 0.88 10^3/uL H 10^3/uL (0.30-0.80) Absolute Eos (auto) 0.51 10^3/uL H 10^3/uL (0.03-0.40) Absolute Basos (auto) 0.08 10^3/uL 10^3/uL (0.02-0.10) Absolute Nucleated RBC 0.00 10^3/uL 10^3/uL (0-0.01) Immature Gran % 0.2 % % (0.0-1.1) Immature Gran # 0.01 10^3/uL 10^3/uL (0.00-0.10) PT 14.1 SEC SEC (12.0-15.0) INR 1.07 (0.83-1.16) APTT 31.6 SEC SEC (23.0-38.0) Sodium 141 mEq/L mEq/L (135-145) Potassium 4.7 mEq/L mEq/L (3.5-5.2) Chloride 104 mEq/L mEq/L (97-110) Carbon Dioxide 26 mEq/l mEq/l (22-31) Anion Gap 11 mEq/L mEq/L (8-16) BUN 24 mg/dL H mg/dL (7-23) Creatinine 1.0 mg/dL mg/dL (0.7-1.3) Estimated GFR > 60 Glucose 81 mg/dL mg/dL (70-100) Calcium 10.3 mg/dL mg/dL (8.5-10.4) Medications Given: Rivaroxaban (Xarelto) 15 mg PO BIDMEAL RASHID Stop: 07/08/18 16:59 Last Admin: 01/09/18 17:02 Dose: 15 mg Departure - Departure Disposition: Home, Routine, Self-Care Clinical Impression: Pulmonary embolus Qualifiers: Pulmonary embolism type: other Chronicity: acute Acute cor pulmonale presence: without acute cor pulmonale Qualified Code(s): I26.99 - Other pulmonary embolism without acute cor pulmonale Condition: Fair Instructions: Pulmonary Embolism (DC) Additional Instructions: Take xarelto as prescribed and recommended. Return for trouble breathing, shortness of breath. Follow up with Dr. Kennedy as well as for further management of the pulmonary embolus Referrals: Kathy Kennedy MD [Primary Care Provider] - As per Instructions Prescriptions: Rivaroxaban [Xarelto 15mg (*)] 15 mg PO BID #41 tab
[2018-01-09 16:10] LABS: PLATELET COUNT 235 10^3/uL (150-400)
[2018-01-09 16:21] LABS: INR 1.07 (0.83-1.16); PROTIME(PATIENT) 14.1 SEC (12.0-15.0)
[2018-01-09 16:46] VITALS: BP 150/86; PULSE 90; RESP 20; O2SAT 93
[2018-01-09 16:55] VITALS: TEMP 98.2
[2018-01-09] MEDS ORDERED: RIVAROXABAN 15 MG TAB ONE (16:57)
[2018-01-09] MEDS ORDERED: RIVAROXABAN 15 MG TAB PO SCH (17:00)
--- NOTE | 2018-01-09 18:19 | GCON ---
[f rep st] CONSULTATION DATE OF CONSULTATION: 01/09/2018 REFERRING PHYSICIAN: Davis Posey MD CHIEF COMPLAINT: Acute pulmonary embolism. PRIMARY THORACIC SURGEON: Dr. Hendrickson. PRIMARY METAL MACHINE SETTER: Dr. Vickers. HISTORY OF PRESENT ILLNESS: A 67-year-old male who was hospitalized November 2017 with a type 1 aortic dissection with severe AI and tamponade that converted to a type B dissection. At that time, he underwent aortic valve replacement, aortic root, ascending aortic replacement. He underwent routine CT chest to evaluate postop and was noted to have a right-sided pulmonary embolus. He was in cardiac rehab today without issue. Denies any chest pain, shortness of breath, nausea, vomiting. No PND, lower extremity edema, or pillow orthopnea. He also saw his primary transport corps officer, Dr. Vickers, today, and all went well during that appointment. Dr. Posey in the ER spoke with Dr. Hendrickson' s team who state that anticoagulation is okay and that he can have an outpatient thoracentesis as there is effusion on scan as well. REVIEW OF SYSTEMS: I completed a 10 point review of systems. Negative except as noted in HPI. PAST MEDICAL HISTORY: 1. Renal cell carcinoma status post right nephrectomy. 2. Prostate cancer. 3. Coronary artery disease status post RCA stent in 2013. 4. RUDI on CPAP. 5. Echocardiogram 12/06/2017 showed moderate aortic valve regurgitation. 6. Thrombocytopenia. PAST SURGICAL HISTORY: 1. Nephrectomy. 2. Prostatectomy. 3. PCI stent. SOCIAL HISTORY: Moderate alcohol 2 glasses of wine or liquor a day. No tobacco. No illicits. ALLERGIES: No known drug allergies. MEDICATIONS: Tramadol as needed, multivitamin, metoprolol 25 mg b.i.d., Advil 200 mg a day p.r.n., [place] 5/325 one tab q.h.s. p.r.n., vitamin D3, Lipitor 20 mg daily, aspirin 81 mg daily, Tylenol as needed. PHYSICAL EXAMINATION: VITAL SIGNS: Temperature 36.4, blood pressure 132/94. Heart rate is in the 70s. 96% on room air. GENERAL: Well- appearing male lying in bed in no acute distress. HEENT: PERRLA, EOMI. Oropharynx clear. CV: Regular rate and rhythm. Positive systolic ejection murmur, right upper sternal border. No lower extremity edema. LUNGS: Clear. No crackles. Decreased breath sounds, right base. ABDOMEN: Soft, nontender, nondistended. Positive bowel sounds. : No . MUSCULOSKELETAL: 5/ 5 upper and lower extremities strength. NEUROLOGIC: 2-12 intact. Alert and oriented x3. IMAGING: CT abdomen and pelvis: 1. New small volume of acute thrombopulmonary embolic disease in the segmental branches of the right lower lobe. 2. New small to moderate layering right pleural effusion and minimal compressive atelectasis. 3. Well-seated prostatic aortic valve and ascending aortic graft with decreased adjacent fluid and stranding. 4. Resolved low attenuation intramural hematoma in the aortic arch just down from the ascending aortic graft. 5. Descending thoracic aortic dissection originating 7 cm downstream from the origin of the left subclavian terminating at the level of the left renal artery is unchanged. LABS: Pending. ASSESSMENT/PLAN: 1. Acute pulmonary embolism: incidental finding on routine imaging. He has no symptoms. Normal BP and not requiring. Anticoagulation is okay per Dr. Hendrickson as per conversation with Dr. Posey. The patient has opted for Xarelto and will provide prescriptions for this. 2. Right-sided pleural effusion: asymptomatic without oxygen needs. Madhavi's group will arrange for outpatient thoracentesis. 3. Coronary artery disease: Status post RA stent in 2013. He is followed by Dr. Vickers. He may resume his home medications. 4. History of obstructive sleep apnea. Continue continuous positive airway pressure. 5. Moderate alcohol use: He drinks at least 2 drinks a day. Recommended decreasing this amount or cessation. 6. Chronic thrombocytopenia: Per my review of laboratories, this is dated back to 2013. Suspect this is due to chronic alcohol use. There are no signs of active bleeding. Platelets are stable today at 235. DISPOSITION: Patient is stable for discharge home. I have discussed the case with Dr. Posey in the ER who agrees with plan. He had spoken with Dr. Hendrickson who agrees with anticoagulation. MEDICATIONS: New medication: Xarelto 15 mg b.i.d. for 3 weeks then 20 mg daily. I have electronically transmitted scripts to his pharmacy. FOLLOWUP: 1. Dr. Hendrickson as scheduled. 2. Outpatient thoracocentesis to be scheduled by Bandar Harry PA-C, with CT surgery. 3. Dr. Vickers. 4. Primary care physician. The patient was given strict return precautions including shortness of breath, chest pain, dizziness, or lightheadedness. /[id number]/MODL MTDD
== END 2018-01-09 17:22 | disposition home or self-care (01) ==
DX: I26.99 Other pulmonary embolism without acute cor pulmonale (principal); I10 Essential (primary) hypertension; Z85.46 Personal history of malignant neoplasm of prostate; Z79.82 Long term (current) use of aspirin; Z79.01 Long term (current) use of anticoagulants; Z95.5 Presence of coronary angioplasty implant and graft
CPT/HCPCS: Q9967

== ENCOUNTER → 2018-01-09 | Outpatient (CLI) | payer OTHER, MEDICARE ==
[~2018-01-09] MED LIST: IOPAMIDOL (ISOVUE 370) 100 ML BTL IV ONE
== END ==
LOC: FIMAGING 09:49
PROVIDERS: ATTEND Physician Assistant Surgical
DX: I26.99 Other pulmonary embolism without acute cor pulmonale (principal); J90 Pleural effusion, not elsewhere classified; J98.11 Atelectasis; Z90.5 Acquired absence of kidney
CPT/HCPCS: 71275; 74174; Q9967

== ENCOUNTER → 2018-01-11 | Outpatient (CLI) | payer OTHER, MEDICARE ==
[~2018-01-11] MED LIST changes: -IOPAMIDOL (ISOVUE 370) 100 ML BTL IV ONE; +LIDOCAINE 1% 300 MG/30 ML SDV ONE
== END ==
LOC: FIMAGING 15:03
PROVIDERS: ATTEND Thoracic Surgery (Cardiothoracic Vascular Surgery)
DX: J90 Pleural effusion, not elsewhere classified (principal)

== ENCOUNTER → 2018-03-14 | Outpatient (CLI) | payer OTHER, MEDICARE ==
[~2018-03-14] MED LIST changes: +IOPAMIDOL (ISOVUE 370) 100 ML BTL IV ONE; -LIDOCAINE 1% 300 MG/30 ML SDV ONE
== END ==
LOC: FIMAGING 07:49
PROVIDERS: ATTEND Thoracic Surgery (Cardiothoracic Vascular Surgery)
DX: Z09 Encounter for follow-up examination after completed treatment for conditions other than malignant neoplasm (principal); I71.01 Dissection of thoracic aorta; K59.00 Constipation, unspecified; Z95.828 Presence of other vascular implants and grafts; Z87.09 Personal history of other diseases of the respiratory system; Z98.890 Other specified postprocedural states
CPT/HCPCS: 71275; 74175; Q9967

== ENCOUNTER → 2018-05-23 | Outpatient (CLI) | payer OTHER, MEDICARE | LOC: BHFA 15:30 | PROVIDERS: ATTEND Internal Medicine Cardiovascular Disease | DX: I25.10 Atherosclerotic heart disease of native coronary artery without angina pectoris (principal) ==

== ENCOUNTER → 2018-12-05 | Outpatient (CLI) | payer OTHER, MEDICARE | LOC: FIMAGING 07:52 | PROVIDERS: ATTEND Thoracic Surgery (Cardiothoracic Vascular Surgery) | DX: Z98.890 Other specified postprocedural states (principal) | CPT/HCPCS: 71275; 74174; Q9967; 82565-PO ==

== ENCOUNTER → 2018-12-15 | Outpatient (CLI) | payer OTHER, MEDICARE ==
[~2018-12-15] MED LIST changes: -IOPAMIDOL (ISOVUE 370) 100 ML BTL IV ONE; +IOPAMIDOL (ISOVUE 370) 75 ML BTL IV ONE; +IOPAMIDOL (ISOVUE-370) 150 ML BTL IV ONE
== END ==
LOC: FIMAGING 13:02
PROVIDERS: ATTEND Thoracic Surgery (Cardiothoracic Vascular Surgery)
DX: I71.03 Dissection of thoracoabdominal aorta (principal); I77.89 Other specified disorders of arteries and arterioles; Z95.2 Presence of prosthetic heart valve; Z95.828 Presence of other vascular implants and grafts
CPT/HCPCS: 70496; 75635; Q9967

== ENCOUNTER → 2019-05-23 | Outpatient (CLI) | payer OTHER, MEDICARE | LOC: BHFA 14:45 ==